=== PATIENT | female | born 1950 | race Caucasian/White ===

== ENCOUNTER → 2016-11-09 | Day surgery (SDC) | payer MEDICARE, MEDICAID ==
[~2016-11-09] VITALS: Ht 157.5 cm; Wt 93.4 kg
[~2016-11-09] MED LIST: /CARB4TA; /CARBXR20T OR; /LAMO20TA; /PROG10CA; ACET50TA PO; ACET65TA OR; ACET65TA PR; ALDA25TA PO; ALLE25CA OR; ANTI25TA; ASPI1TAB PO; ASPI81TA83 OR; BACT800T5 PO; BACTDSTA PO; BENA25CA PO; BIMA01SOL OU; CALCTAB52 PO; CIPRO OR; CITRACAL; CITRACAL PO; CLOTRIMAZOLE CREAM TOP; COLA100C2 OR; COLA100C3 PO; COMB0.2S OU; DETR2CAP OR; DETR4CAP; DOXY100T; ESTR625TA; ESTR625TA OR; IBUP800T; IBUP800T OR; KEPP1000 PO; LAMICTAL PO; LAMO150T PO; LIDOCAINE 2% INJ 100 MG/5 ML SDV (FOR ANES.) As Ordered ONE; LOTRCRE; LUMIGAN OU; MECL12.5 OR; MILKSUS OR; MULT1TAB10 PO; MULTIVIT; MULTIVIT PO; NS 1,000 ML IV ONE; OXYB10TA OR; OXYB5TAB PO; PATA0.2S OU; PERCOCET PO; PROPOFOL 200 MG/20 ML VIAL As Ordered ONE; TOPAMAX; TOPAMAX PO; TOPI200T; TOPI200T4 PO; TRAVOPROST; VICO5TAB OR; VIMPAT; VITA-130 PO; VITA500T OR; XALATAN OPHT OU; ZITH250T; lamictal PO
[2016-11-09 10:50] VITALS: BP 122/67
== END | disposition home or self-care (01) ==
LOC: M OPP 07:59 → M SDC 07:59
PROVIDERS: ATTEND Internal Medicine Gastroenterology
DX: Z12.11 Encounter for screening for malignant neoplasm of colon (principal); K64.0 First degree hemorrhoids; K57.30 Diverticulosis of large intestine without perforation or abscess without bleeding; Q04.3 Other reduction deformities of brain; G93.40 Encephalopathy, unspecified; G81.10 Spastic hemiplegia affecting unspecified side; H93.19 Tinnitus, unspecified ear; N32.81 Overactive bladder; G47.33 Obstructive sleep apnea (adult) (pediatric); G47.61 Periodic limb movement disorder; H40.9 Unspecified glaucoma; C54.2 Malignant neoplasm of myometrium; R92.8 Other abnormal and inconclusive findings on diagnostic imaging of breast; R29.898 Other symptoms and signs involving the musculoskeletal system; G40.909 Epilepsy, unspecified, not intractable, without status epilepticus; R06.83 Snoring; Z88.1 Allergy status to other antibiotic agents; Z88.8 Allergy status to other drugs, medicaments and biological substances; Z91.048 Other nonmedicinal substance allergy status; Z91.09 Other allergy status, other than to drugs and biological substances; Z79.899 Other long term (current) drug therapy; Z79.82 Long term (current) use of aspirin; Z86.79 Personal history of other diseases of the circulatory system; Z87.81 Personal history of (healed) traumatic fracture; Z90.710 Acquired absence of both cervix and uterus

== ENCOUNTER → 2016-11-11 | Outpatient (CLI) | payer MEDICARE, MEDICAID ==
[~2016-11-11] MED LIST changes: -LIDOCAINE 2% INJ 100 MG/5 ML SDV (FOR ANES.) As Ordered ONE; -NS 1,000 ML IV ONE; -PROPOFOL 200 MG/20 ML VIAL As Ordered ONE
[2016-11-11 14:06] LABS: BASO % 0.3 % (0.0-1.0); EOS # 0.2 K/mm3 (0.0-0.50); EOS % 2.3 % (0.0-3.0); LARGE UNSTAINED CELL # 0.1 K/mm3 (0.0-0.4); LARGE UNSTAINED CELL % 1.1 % (0.0-4.0); LYMPH # 1.4 K/mm3 (1.5-4.5); MEAN CORPUSCULAR HGB CONC 32.7 g/dl (32.0-36.5); MEAN CORPUSCULAR VOLUME 103.8 fl (80.0-96.0); MONO # 0.4 K/mm3 (0.0-0.8); MONO % 5.4 % (0.0-5.0); NEUTROPHILS # 5.3 K/mm3 (1.8-7.7); NEUTROPHILS % 71.8 % (36.0-66.0); PLATELET COUNT, AUTOMATED 218 k/mm3 (150-450); RED CELL DISTRIBUTION WIDTH 11.8 % (11.5-14.5); WHITE BLOOD COUNT 7.3 K/mm3 (4.0-10.0)
[2016-11-11 14:38] LABS: ALBUMIN 3.7 GM/DL (3.2-5.2); ALKALINE PHOSPHATASE 120 U/L (45-117); ALT/SGPT 22 U/L (12-78); ANION GAP 8 MEQ/L (8-16); AST/SGOT 19 U/L (15-37); BILIRUBIN,TOTAL 0.4 MG/DL (0.2-1.0); BLOOD UREA NITROGEN 13 MG/DL (7-18); CALCIUM LEVEL 9.2 MG/DL (8.8-10.2); CARBON DIOXIDE LEVEL 27 MEQ/L (21-32); CHLORIDE LEVEL 109 MEQ/L (98-107); CHOLESTEROL LEVEL 139 MG/DL (<200); CREATININE FOR GFR 0.84 MG/DL (0.55-1.02); GLOMERULAR FILTRATION RATE > 60.0 (>45); GLUCOSE, FASTING 85 MG/DL (80-110); SODIUM LEVEL 144 MEQ/L (136-145); TOTAL PROTEIN 7.4 GM/DL (6.4-8.2); TRIGLYCERIDES LEVEL 44 MG/DL (<150)
== END ==
LOC: M WUC 08:55
PROVIDERS: ATTEND Emergency Medicine
DX: I10 Essential (primary) hypertension (principal)

== ENCOUNTER → 2016-12-20 | Outpatient (CLI) | payer MEDICARE, MEDICAID ==
[~2016-12-20] MED LIST changes: -COLA100C3 PO; +COLA100C5 PO; -KEPP1000 PO; +KEPP10002 PO; +LIDOCAINE 1% MDV 20ML VIAL As Ordered ONE; -TOPI200T4 PO; +TOPI200T7 PO; -VITA-130 PO; +VITA500T PO
--- NOTE | 2016-12-20 15:45 | REP ---
RIGHT BREAST STEREOTACTIC BIOPSY: The procedure was performed by MANDI Devine under the direct and personal supervision of Dr Paul. The procedure along with its risks, benefits, and complications were discussed with the patient's healthcare proxy via phone call. Verbal consent was obtained. The patient was identified and brought into the mammography suite. She was placed in the mammography chair on her left hand side. A procedural "time out" was performed to ensure that the correct patient, site and procedure were being performed. A lateral medial approach was used. The skin was cleansed with Chloraprep. Cutaneous and deeper subcutaneous anesthesia were achieved using 10 mL of 1% Xylocaine. A small scalpel incision was made. The Mammotome biopsy device was inserted and its accuracy was confirmed with pre and post fire imaging. A total of six core biopsy specimens were obtained. The biopsy specimens revealed calcifications upon specimen radiography. The biopsy specimens were placed in formalin and sent to the lab for further evaluation. No biopsy clip was inserted at the biopsy site due to patient allergy. Post procedural craniocaudal and mediolateral projections disclosed no further calcifications at the target site. Following the procedure, the wound was cleansed and compressed. Steri-Strips and sterile gauze were applied and the patient was given their post biopsy instructions. She was discharged from the department in good condition. Reviewed by MANDI Sanders 12/20/2016 04:31 PEdited and Signed by Jose Paul MD 12/20/2016 09:09 P
--- NOTE | 2016-12-20 18:37 | REP ---
Right breast specimen radiograph: 12/20/2016. Comparison: Stereotactic localization images this date, mammogram 11/04/2016. Two images with a total of five core samples on one images two and the other show that on sample labeled number of O or all of the targeted microcalcifications except for one in that specimen with 1 ml ample five. Impression: sampling of the calcifications target for biopsy with the majority of the calcifications and one in the sample gauge for one calcification and sample gait five. Please see the posterior tactic mammogram report this date. Signed by Jose Paul MD 12/20/2016 06:29 P
--- NOTE | 2016-12-20 18:50 | REP ---
Right breast post stereotactic clip placement study: 12/20/2016. Comparison: Stereotactic working films this date, mammogram 11/17/2016. Findings: CC and ML views after stereotactic biopsy showed the targeted microcalcifications are completely removed on both images. There are scattered benign calcifications and arterial calcifications present, but no residual calcifications from the targeted cluster. Impression: 1. Status post stereotactic biopsy with complete removal of the calcific target in question. Followup should be guided by the stereotactic biopsy results but if negative, annual bilateral screening mammogram should resume in October 2017. Signed by Jose Paul MD 12/20/2016 09:28 P
== END | disposition home or self-care (01) ==
LOC: M RADPRO 12:02
PROVIDERS: ATTEND Surgery
DX: E65 Localized adiposity (principal); R92.8 Other abnormal and inconclusive findings on diagnostic imaging of breast; F79 Unspecified intellectual disabilities; G40.909 Epilepsy, unspecified, not intractable, without status epilepticus; H40.9 Unspecified glaucoma; Z86.73 Personal history of transient ischemic attack (TIA), and cerebral infarction without residual deficits; Z88.8 Allergy status to other drugs, medicaments and biological substances; L23.1 Allergic contact dermatitis due to adhesives; Z88.1 Allergy status to other antibiotic agents; Z79.899 Other long term (current) drug therapy; Z91.048 Other nonmedicinal substance allergy status

== ENCOUNTER → 2016-12-24 | Outpatient (REF) ==
[~2016-12-24] MED LIST changes: -LIDOCAINE 1% MDV 20ML VIAL As Ordered ONE
== END ==
LOC: M LAB 11:56
PROVIDERS: ATTEND Nurse Practitioner Adult Health
DX: Z02.1 Encounter for pre-employment examination (principal)

== ENCOUNTER → 2017-03-02 | Outpatient (CLI) | payer MEDICARE, MEDICAID ==
[2017-03-02 14:18] LABS: BASO % 0.4 % (0.0-1.0); EOS # 0.2 10^3/uL (0.0-0.50); IMMATURE GRANULOCYTE % 0.4 % (0-0); LYMPH % 25.1 % (24.0-44.0); MEAN CORPUSCULAR HEMOGLOBIN 32.7 pg (27.0-33.0); MEAN CORPUSCULAR HGB CONC 31.9 g/dl (32.0-36.5); MEAN CORPUSCULAR VOLUME 102.6 fl (80.0-96.0); MONO # 0.6 10^3/uL (0.0-0.8); MONO % 7.6 % (0.0-5.0); NEUTROPHILS % 63.5 % (36.0-66.0); PLATELET COUNT, AUTOMATED 210 10^3/uL (150-450); RED CELL DISTRIBUTION WIDTH 12.5 % (11.5-14.5); WHITE BLOOD COUNT 7.9 10^3/uL (4.0-10.0)
[2017-03-02 14:33] LABS: ALBUMIN 3.6 GM/DL (3.2-5.2); ALBUMIN/GLOBULIN RATIO 1.03 (1.00-1.93); ALKALINE PHOSPHATASE 108 U/L (45-117); ALT/SGPT 21 U/L (12-78); ANION GAP 7 MEQ/L (8-16); AST/SGOT 13 U/L (15-37); BILIRUBIN,TOTAL 0.3 MG/DL (0.2-1.0); BLOOD UREA NITROGEN 15 MG/DL (7-18); CALCIUM LEVEL 9.1 MG/DL (8.8-10.2); CARBON DIOXIDE LEVEL 27 MEQ/L (21-32); CHLORIDE LEVEL 108 MEQ/L (98-107); CREATININE FOR GFR 0.76 MG/DL (0.55-1.02); GLOMERULAR FILTRATION RATE > 60.0 (>45); GLUCOSE, FASTING 88 MG/DL (80-110); POTASSIUM SERUM 3.9 MEQ/L (3.5-5.1); SODIUM LEVEL 142 MEQ/L (136-145); TOTAL PROTEIN 7.1 GM/DL (6.4-8.2)
[2017-03-08 00:11] LABS: TOPIRAMATE LEVEL 19.9 ug/mL (2.0-25.0)
== END ==
LOC: M WUC 09:26
PROVIDERS: ATTEND Psychiatry & Neurology Neurology
DX: G40.211 Localization-related (focal) (partial) symptomatic epilepsy and epileptic syndromes with complex partial seizures, intractable, with status epilepticus (principal); I69.851 Hemiplegia and hemiparesis following other cerebrovascular disease affecting right dominant side; R26.1 Paralytic gait

== ENCOUNTER → 2017-07-22 | Outpatient (CLI) | payer MEDICARE, MEDICAID ==
[2017-07-22 12:10] LABS: BASO % 0.4 % (0.0-1.0); EOS # 0.1 10^3/uL (0.0-0.50); EOS % 1.7 % (0.0-3.0); HEMATOCRIT 37.9 % (36.0-47.0); HEMOGLOBIN 12.3 g/dl (12.0-16.0); IMMATURE GRANULOCYTE % 0.1 % (0-3.0); LYMPH % 26.2 % (24.0-44.0); MEAN CORPUSCULAR HEMOGLOBIN 32.8 pg (27.0-33.0); MEAN CORPUSCULAR HGB CONC 32.5 g/dl (32.0-36.5); MEAN CORPUSCULAR VOLUME 101.1 fl (80.0-96.0); MONO # 0.4 10^3/uL (0.0-0.8); MONO % 5.6 % (0.0-5.0); PLATELET COUNT, AUTOMATED 231 10^3/uL (150-450); RED BLOOD COUNT 3.75 10^6/uL (4.00-5.40); RED CELL DISTRIBUTION WIDTH 12.7 % (11.5-14.5); WHITE BLOOD COUNT 7.5 10^3/uL (4.0-10.0)
[2017-07-22 12:39] LABS: ALBUMIN 3.5 GM/DL (3.2-5.2); ALBUMIN/GLOBULIN RATIO 0.88 (1.00-1.93); ALKALINE PHOSPHATASE 112 U/L (45-117); ALT/SGPT 16 U/L (12-78); ANION GAP 5 MEQ/L (8-16); AST/SGOT 12 U/L (7-37); BILIRUBIN,TOTAL 0.3 MG/DL (0.2-1.0); BLOOD UREA NITROGEN 17 MG/DL (7-18); CALCIUM LEVEL 8.7 MG/DL (8.8-10.2); CARBON DIOXIDE LEVEL 30 MEQ/L (21-32); CHLORIDE LEVEL 107 MEQ/L (98-107); CREATININE FOR GFR 0.87 MG/DL (0.55-1.30); GLOMERULAR FILTRATION RATE > 60.0 (>45); GLUCOSE, FASTING 81 MG/DL (70-100); POTASSIUM SERUM 3.8 MEQ/L (3.5-5.1); SODIUM LEVEL 142 MEQ/L (136-145); TOTAL PROTEIN 7.5 GM/DL (6.4-8.2)
[2017-07-26 00:06] LABS: LEVETIRACETAM (KEPPRA) 25.6 ug/mL (10.0-40.0)
[2017-07-26 00:06] LABS: LAMOTRIGINE (LAMICTAL) 6.6 ug/mL (2.0-20.0); TOPIRAMATE LEVEL 22.5 ug/mL (2.0-25.0)
== END ==
LOC: M WUC 10:32
DX: R56.9 Unspecified convulsions (principal)
CPT/HCPCS: 80053

== ENCOUNTER 2017-08-03 07:31 | Emergency (ER) | payer MEDICARE, MEDICAID | END 2017-08-03 08:20 | disposition home or self-care (01) | LOC: M ED 07:31 | DX: S00.03XA Contusion of scalp, initial encounter (principal); W01.198A Fall on same level from slipping, tripping and stumbling with subsequent striking against other object, initial encounter; Y92.098 Other place in other non-institutional residence as the place of occurrence of the external cause; G40.209 Localization-related (focal) (partial) symptomatic epilepsy and epileptic syndromes with complex partial seizures, not intractable, without status epilepticus; F70 Mild intellectual disabilities; R51 Headache; Z79.899 Other long term (current) drug therapy; Z79.82 Long term (current) use of aspirin; Z88.8 Allergy status to other drugs, medicaments and biological substances; Z88.1 Allergy status to other antibiotic agents; Z91.048 Other nonmedicinal substance allergy status | CPT/HCPCS: 99282 ==

== ENCOUNTER → 2017-09-20 | Outpatient (CLI) | payer MEDICARE, MEDICAID ==
[2017-09-20 12:44] LABS: BASO % 0.4 % (0.0-1.0); EOS # 0.2 10^3/uL (0.0-0.50); EOS % 2.2 % (0.0-3.0); HEMATOCRIT 38.8 % (36.0-47.0); HEMOGLOBIN 12.6 g/dl (12.0-15.5); IMMATURE GRANULOCYTE % 0.3 % (0-3.0); LYMPH % 26.9 % (24.0-44.0); MEAN CORPUSCULAR HEMOGLOBIN 33.2 pg (27.0-33.0); MEAN CORPUSCULAR HGB CONC 32.5 g/dl (32.0-36.5); MEAN CORPUSCULAR VOLUME 102.1 fl (80.0-96.0); MONO # 0.5 10^3/uL (0.0-0.8); MONO % 6.8 % (0.0-5.0); NEUTROPHILS # 4.7 10^3/uL (1.8-7.7); NEUTROPHILS % 63.4 % (36.0-66.0); PLATELET COUNT, AUTOMATED 212 10^3/uL (150-450); RED CELL DISTRIBUTION WIDTH 11.9 % (11.5-14.5); WHITE BLOOD COUNT 7.3 10^3/uL (4.0-10.0)
[2017-09-20 12:55] LABS: ALBUMIN 3.3 GM/DL (3.2-5.2); ALBUMIN/GLOBULIN RATIO 0.87 (1.00-1.93); ALKALINE PHOSPHATASE 117 U/L (45-117); ALT/SGPT 17 U/L (12-78); ANION GAP 5 MEQ/L (8-16); AST/SGOT 14 U/L (7-37); BILIRUBIN,TOTAL 0.3 MG/DL (0.2-1.0); BLOOD UREA NITROGEN 19 MG/DL (7-18); CALCIUM LEVEL 8.8 MG/DL (8.8-10.2); CARBON DIOXIDE LEVEL 29 MEQ/L (21-32); CHLORIDE LEVEL 110 MEQ/L (98-107); CHOLESTEROL LEVEL 134 MG/DL (<200); CHOLESTEROL RISK RATIO 1.942 (<5); CREATININE FOR GFR 0.91 MG/DL (0.55-1.30); GLOMERULAR FILTRATION RATE > 60.0 (>45); GLUCOSE, FASTING 78 MG/DL (70-100); HDL CHOLESTEROL 69 MG/DL (>40); LDL CHOLESTEROL 55.4 MG/DL (<100); NON-HDL-C 65 MG/DL; POTASSIUM SERUM 3.7 MEQ/L (3.5-5.1); SODIUM LEVEL 144 MEQ/L (136-145); TOTAL PROTEIN 7.1 GM/DL (6.4-8.2); TRIGLYCERIDES LEVEL 48 MG/DL (<150)
== END ==
LOC: M WUC 09:49
DX: I10 Essential (primary) hypertension (principal)
CPT/HCPCS: 80053

== ENCOUNTER → 2018-08-23 | Outpatient (CLI) | payer MEDICARE, MEDICAID ==
[~2018-08-23] MED LIST changes: -/CARB4TA; -/CARBXR20T OR; -/LAMO20TA; -/PROG10CA; -ACET50TA PO; -ALDA25TA PO; -ASPI1TAB PO; +ASPI81TA26 PO; -BACTDSTA PO; +IBUP-1114 PO; +LAMI1TAB9; -LAMO150T PO; +LAMO150T2 PO; +MAPA500T17 PO; +OXYC1TAB23 PO; -PERCOCET PO; +PROM1CAP; +SPIR1TAB34 PO; +SULF1TAB23 PO; +TEGR1TAB OR; +TEGR1TAB2
[2018-08-23 08:04] LABS: BASO % 0.3 % (0.0-1.0); EOS # 0.2 10^3/uL (0.0-0.50); EOS % 2.5 % (0.0-3.0); HEMATOCRIT 39.4 % (36.0-47.0); HEMOGLOBIN 12.7 g/dl (12.0-15.5); LYMPH # 1.8 10^3/uL (1.5-4.5); LYMPH % 27.2 % (24.0-44.0); MEAN CORPUSCULAR HEMOGLOBIN 33.3 pg (27.0-33.0); MEAN CORPUSCULAR HGB CONC 32.2 g/dl (32.0-36.5); MEAN CORPUSCULAR VOLUME 103.4 fl (80.0-96.0); MONO # 0.4 10^3/uL (0.0-0.8); MONO % 6.5 % (0.0-5.0); NEUTROPHILS # 4.3 10^3/uL (1.8-7.7); NEUTROPHILS % 63.2 % (36.0-66.0); PLATELET COUNT, AUTOMATED 229 10^3/uL (150-450); RED BLOOD COUNT 3.81 10^6/uL (4.00-5.40); WHITE BLOOD COUNT 6.8 10^3/uL (4.0-10.0)
[2018-08-23 08:16] LABS: ALBUMIN 3.5 GM/DL (3.2-5.2); ALT/SGPT 17 U/L (12-78); BILIRUBIN,TOTAL 0.3 MG/DL (0.2-1.0); BLOOD UREA NITROGEN 21 MG/DL (7-18); CALCIUM LEVEL 9.6 MG/DL (8.8-10.2); CARBON DIOXIDE LEVEL 29 MEQ/L (21-32); CHLORIDE LEVEL 108 MEQ/L (98-107); CREATININE FOR GFR 1.13 MG/DL (0.55-1.30); GLOMERULAR FILTRATION RATE 51.3 (>45); GLUCOSE, FASTING 88 MG/DL (70-100); POTASSIUM SERUM 3.6 MEQ/L (3.5-5.1); SODIUM LEVEL 142 MEQ/L (136-145); TOTAL PROTEIN 7.4 GM/DL (6.4-8.2)
[2018-08-23 09:56] LABS: TOTAL 25(OH) VITAMIN D 41.2 NG/ML (30.0-100.0); VITAMIN B12 LEVEL 975 PG/ML
[2018-08-23 09:57] LABS: FOLATE > 24.0 NG/ML
[2018-08-25 08:15] LABS: TOPIRAMATE LEVEL 27.4 ug/mL (2.0-25.0)
[2018-08-26 00:08] LABS: LAMOTRIGINE (LAMICTAL) 10.2 ug/mL (2.0-20.0); LEVETIRACETAM (KEPPRA) 39.5 ug/mL (10.0-40.0)
== END ==
LOC: M LAB 07:15
PROVIDERS: ATTEND Physician Assistant Medical
DX: R56.9 Unspecified convulsions (principal); Z51.81 Encounter for therapeutic drug level monitoring; R53.83 Other fatigue; Z79.82 Long term (current) use of aspirin

== ENCOUNTER → 2018-09-04 | Outpatient (CLI) | payer MEDICARE, MEDICAID ==
[2018-09-06 00:58] LABS: TOPIRAMATE LEVEL 35.8 ug/mL (2.0-25.0)
== END ==
LOC: M LAB 07:35
PROVIDERS: ATTEND Physician Assistant Medical
DX: R56.9 Unspecified convulsions (principal)

== ENCOUNTER → 2018-09-18 | Outpatient (CLI) | payer MEDICARE, MEDICAID ==
[2018-09-20 08:36] LABS: TOPIRAMATE LEVEL 22.5 ug/mL (2.0-25.0)
== END ==
LOC: M LAB 07:31
PROVIDERS: ATTEND Physician Assistant Medical
DX: G40.89 Other seizures (principal)

== ENCOUNTER 2018-10-12 08:04 | Emergency (ER) | payer MEDICARE, MEDICAID ==
[2018-10-12 08:38] LABS: BASO % 0.2 % (0.0-1.0); EOS # 0.2 10^3/uL (0.0-0.50); EOS % 2.5 % (0.0-3.0); HEMATOCRIT 38.1 % (36.0-47.0); HEMOGLOBIN 12.3 g/dl (12.0-15.5); LYMPH % 24.3 % (24.0-44.0); MEAN CORPUSCULAR HGB CONC 32.3 g/dl (32.0-36.5); MEAN CORPUSCULAR VOLUME 105.2 fl (80.0-96.0); MONO # 0.7 10^3/uL (0.0-0.8); MONO % 8.6 % (0.0-5.0); NEUTROPHILS # 5.4 10^3/uL (1.8-7.7); PLATELET COUNT, AUTOMATED 234 10^3/uL (150-450); RED BLOOD COUNT 3.62 10^6/uL (4.00-5.40); WHITE BLOOD COUNT 8.4 10^3/uL (4.0-10.0)
[2018-10-12] MEDS ORDERED: TOPA200T7 PO (08:43)
[2018-10-12 09:16] LABS: ALBUMIN 3.5 GM/DL (3.2-5.2); ALT/SGPT 15 U/L (12-78); BILIRUBIN,DIRECT < 0.1 MG/DL (0.0-0.2); BILIRUBIN,TOTAL 0.2 MG/DL (0.2-1.0); BLOOD UREA NITROGEN 28 MG/DL (7-18); CALCIUM LEVEL 9.5 MG/DL (8.8-10.2); CARBON DIOXIDE LEVEL 28 MEQ/L (21-32); CHLORIDE LEVEL 108 MEQ/L (98-107); CK-MB VALUE MASS < 1.0 NG/ML (<3.6); CPK CREATINE PHOSPHOKINASE 71 U/L (26-192); GLOMERULAR FILTRATION RATE 43.6 (>45); GLUCOSE, FASTING 79 MG/DL (70-100); MB/CK RELATIVE INDEX 1.41 (< OR =4); POTASSIUM SERUM 3.4 MEQ/L (3.5-5.1); SODIUM LEVEL 143 MEQ/L (136-145); TOTAL PROTEIN 7.1 GM/DL (6.4-8.2); TROPONIN I < 0.02 NG/ML (< 0.10)
[2018-10-12] MEDS ORDERED: NS 1,000 ML IV ONE (09:30)
[2018-10-12 12:20] VITALS: BP 111/68
--- NOTE | 2018-10-12 20:44 | ECGEPIP ---
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
== END 2018-10-12 12:40 | disposition home or self-care (01) ==
LOC: M ED 08:04
DX: R42 Dizziness and giddiness (principal); S50.311A Abrasion of right elbow, initial encounter; S60.511A Abrasion of right hand, initial encounter; W01.190A Fall on same level from slipping, tripping and stumbling with subsequent striking against furniture, initial encounter; Y92.092 Bedroom in other non-institutional residence as the place of occurrence of the external cause; I10 Essential (primary) hypertension; E07.9 Disorder of thyroid, unspecified; R56.9 Unspecified convulsions; Z86.73 Personal history of transient ischemic attack (TIA), and cerebral infarction without residual deficits; R32 Unspecified urinary incontinence; Z88.1 Allergy status to other antibiotic agents; Z88.8 Allergy status to other drugs, medicaments and biological substances; Z91.048 Other nonmedicinal substance allergy status; Z79.899 Other long term (current) drug therapy; Z79.82 Long term (current) use of aspirin

== ENCOUNTER 2019-02-16 09:35 | Outpatient (RCR) | payer MEDICARE, MEDICAID ==
[~2019-02-16 09:35] MED LIST changes: -OXYB5TAB PO; +OXYB5TAB2 PO; +TOPA200T7 PO
== END 2019-02-19 | disposition home or self-care (01) ==
LOC: M PT 09:35
PROVIDERS: ATTEND Family Medicine
DX: Z51.89 Encounter for other specified aftercare (principal); M79.605 Pain in left leg; R29.6 Repeated falls

== ENCOUNTER → 2019-02-21 | Outpatient (CLI) | payer MEDICARE, MEDICAID ==
--- NOTE | 2019-02-21 16:53 | REP ---
REASON FOR EXAM: Pain. COMPARISON EXAMINATION: None. There is tricompartmental marginal osteophytosis. There is asymmetric patellofemoral joint space narrowing, however, no sunrise view is obtained. There is no acute fracture. IMPRESSION:Chronic changes. Electronically Signed by German Snyder DO 02/21/2019 05:05 P
== END ==
LOC: M WUC 14:29
PROVIDERS: ATTEND Nurse Practitioner Family
DX: M25.762 Osteophyte, left knee (principal)

== ENCOUNTER → 2019-02-23 | Outpatient (CLI) | payer MEDICARE, MEDICAID ==
--- NOTE | 2019-02-23 15:31 | REPMRS ---
Patient History The patient states she has not had a clinical breast exam in over a year. No known family history of cancer. Benign radio exam breast specimen of the right breast, December 20, 2016. Benign stereotatic loc for ea lesion of the right breast, December 20, 2016. Radio exam Breast Specimen, August 04, 2011. Localization of Breast Nodule of both breasts, August 04, 2011. Benign stereotatic breast biopsy of both breasts, July 14, 2011. No Hormone Replacement Therapy 3D TOMOSYNTHESIS WAS PERFORMED. The [facility] lifetime risk for breast cancer is 7.4%. Digital Woman Screen Mammo: February 23, 2019 - Exam #: [id number] Bilateral CC and MLO view(s) were taken. Technologist: Harika Britton Technologist Prior study comparison: January 17, 2018, bilateral digital woman screen mammo performed at [facility]. March 15, 2016, right breast digital mammo diagnostic unilateral, performed at [facility]. FINDINGS: There are scattered fibroglandular densities. There has been no change in the appearance of the mammogram from the prior studies. There is a mild amount of residual fibroglandular tissue which is fairly symmetric. There is no interval development of dominant mass, architectural distortion, or clustered microcalcification suggestive of malignancy. Assessment: BI-RADS/ACR category 1 mammogram. Negative Mammogram. Recommendation Routine screening mammogram in 1 year (for women over age 40). This mammogram was interpreted with the aid of an FDA-approved computer-aided dectection system. Electronically Signed By: Filemon Vyas MD 02/23/19 1550
== END ==
LOC: M WHC 10:29
PROVIDERS: ATTEND Family Medicine
DX: Z12.31 Encounter for screening mammogram for malignant neoplasm of breast (principal)

== ENCOUNTER 2019-03-14 07:30 | Outpatient (RCR) | payer MEDICARE, MEDICAID | END 2019-03-22 | LOC: M PT 07:30 | PROVIDERS: ATTEND Family Medicine | DX: M79.605 Pain in left leg (principal); R29.6 Repeated falls ==

== ENCOUNTER → 2019-04-13 | Outpatient (CLI) | payer MEDICARE, MEDICAID ==
--- NOTE | 2019-04-13 15:52 | REP ---
LEFT KNEE SERIES: Five views of the left knee are performed. There is no acute fracture or dislocation. There is mild lateral joint space narrowing with mild subchondral sclerosis. There is mild spurring of the femoral condyles and tibial plateaus. There is mild spurring of the medial and lateral patellar facets. There is slight narrowing of the patellofemoral joint with mild subchondral sclerosis. There does appear to be a mild to moderate joint effusion. IMPRESSION: Mild degenerative changes. Mild to moderate joint effusion. Electronically Signed by Filemon Vyas MD 04/16/2019 10:10 A
== END ==
LOC: M ADAMS 13:11
PROVIDERS: ATTEND Physician Assistant Medical
DX: S80.02XA Contusion of left knee, initial encounter (principal); M17.12 Unilateral primary osteoarthritis, left knee; M25.462 Effusion, left knee

== ENCOUNTER → 2019-08-22 | Outpatient (REF) | payer MEDICARE, MEDICAID ==
[~2019-08-22] MED LIST changes: -LAMO150T2 PO; +LAMO150T3 PO; +OXYB-54 PO; -OXYB5TAB2 PO
== END ==
LOC: M LABDRAW1 09:01
PROVIDERS: ATTEND Physician Assistant Medical
DX: R56.9 Unspecified convulsions (principal)

== ENCOUNTER → 2020-02-21 | Outpatient (CLI) | payer MEDICARE, MEDICAID ==
[~2020-02-21] MED LIST changes: +OLOP2.5D3 OU; -PATA0.2S OU; +VITA-243 PO; -VITA500T PO
[2020-02-21 13:07] LABS: BASO % 0.2 % (0.0-1.0); EOS # 0.2 10^3/uL (0.0-0.5); EOS % 2.4 % (0.0-3.0); HEMATOCRIT 38.9 % (36.0-47.0); HEMOGLOBIN 12.6 g/dl (12.0-15.5); LYMPH # 1.8 10^3/uL (1.5-5.0); LYMPH % 22.8 % (24.0-44.0); MEAN CORPUSCULAR HEMOGLOBIN 33.5 pg (27.0-33.0); MEAN CORPUSCULAR HGB CONC 32.4 g/dl (32.0-36.5); MEAN CORPUSCULAR VOLUME 103.5 fl (80.0-96.0); MONO # 0.6 10^3/uL (0.0-0.8); NEUTROPHILS # 5.3 10^3/uL (1.5-8.5); NEUTROPHILS % 66.4 % (36.0-66.0); PLATELET COUNT, AUTOMATED 227 10^3/uL (150-450); RED BLOOD COUNT 3.76 10^6/uL (4.00-5.40)
[2020-02-21 13:48] LABS: ALBUMIN 3.6 GM/DL (3.2-5.2); BILIRUBIN,TOTAL 0.3 MG/DL (0.2-1.0); CALCIUM LEVEL 9.4 MG/DL (8.8-10.2); CHOLESTEROL RISK RATIO 1.913 (<5); CREATININE FOR GFR 1.08 MG/DL (0.55-1.30); FREE T4 1.24 NG/DL (0.76-1.46); GLOMERULAR FILTRATION RATE 53.9 (>45); POTASSIUM SERUM 3.8 MEQ/L (3.5-5.1); THYROID STIMULATING HORMONE 1.69 uIU/ML (0.358-3.740); TOTAL PROTEIN 7.1 GM/DL (6.4-8.2)
== END ==
LOC: M WUC 08:54
PROVIDERS: ATTEND Nurse Practitioner Family
DX: I10 Essential (primary) hypertension (principal)

== ENCOUNTER → 2020-10-15 | Outpatient (CLI) | payer MEDICARE, MEDICAID ==
--- NOTE | 2020-10-15 12:31 | REPMRS ---
Patient History The patient states she has not had a clinical breast exam in over a year. No known family history of cancer. Benign radio exam breast specimen of the right breast, December 20, 2016. Benign stereotatic loc for ea lesion of the right breast, December 20, 2016. Radio exam Breast Specimen, August 04, 2011. Localization of Breast Nodule of both breasts, August 04, 2011. Benign stereotatic breast biopsy of both breasts, July 14, 2011. No Hormone Replacement Therapy No breast complaints today Patient signed the MRS sheet 1st covid vaccine 07/01/20-right arm-Moderna 2nd covid vaccine 07/29/20-right arm 2D only/Best views possible due to patient condition/[facility] client Priors on PACS Patient Identification Verified Digital Woman Screen Mammo: October 15, 2020 - Exam #: [id number] Bilateral CC and MLO view(s) were taken. Technologist: Florence Sheikh, Technologist Prior study comparison: February 23, 2019, bilateral digital woman screen mammo performed at [facility] [place]. January 17, 2018, bilateral digital woman screen mammo performed at [facility] [place]. November 04, 2016, bilateral digital mammo screening bilat, performed at [facility]. FINDINGS: There are scattered fibroglandular densities. The Volpara volumetric breast density category is:B. There has been no change in the appearance of the mammogram from the prior studies. There is a mild amount of scattered fibroglandular density which is fairly symmetric. There is no interval development of dominant mass, architectural distortion, or grouped microcalcification suggestive of malignancy. Assessment: BI-RADS/ACR category 1 mammogram. Negative Mammogram. Recommendation Routine screening mammogram of both breasts in 1 year (for women over age 40). This patient's [facility] Lifetime Breast Cancer Risk is estimated at 6.6 %. This mammogram was interpreted with the aid of an FDA-approved computer-aided dectection system. Electronically Signed By: Ramírez Martinez MD 10/15/20 3283
== END ==
LOC: M WHC 10:55
PROVIDERS: ATTEND Family Medicine
DX: Z12.31 Encounter for screening mammogram for malignant neoplasm of breast (principal); Z86.018 Personal history of other benign neoplasm

== ENCOUNTER → 2021-02-12 | Outpatient (CLI) | payer MEDICARE, MEDICAID ==
[2021-02-12 16:45] LABS: BASO % 0.4 % (0.0-1.0); EOS # 0.7 10^3/uL (0.0-0.5); EOS % 8.4 % (0.0-3.0); HEMATOCRIT 38.4 % (36.0-47.0); HEMOGLOBIN 12.6 g/dl (12.0-15.5); LYMPH # 2.4 10^3/uL (1.5-5.0); LYMPH % 30.6 % (24.0-44.0); MEAN CORPUSCULAR HEMOGLOBIN 33.4 pg (27.0-33.0); MEAN CORPUSCULAR HGB CONC 32.8 g/dl (32.0-36.5); MEAN CORPUSCULAR VOLUME 101.9 fl (80.0-96.0); MONO # 0.6 10^3/uL (0.0-0.8); MONO % 8.1 % (2.0-8.0); NEUTROPHILS # 4.1 10^3/uL (1.5-8.5); NEUTROPHILS % 52.1 % (36.0-66.0); PLATELET COUNT, AUTOMATED 230 10^3/uL (150-450); RED BLOOD COUNT 3.77 10^6/uL (4.00-5.40); WHITE BLOOD COUNT 7.9 10^3/uL (4.0-10.0)
[2021-02-12 17:10] LABS: ALBUMIN 3.4 GM/DL (3.2-5.2); BILIRUBIN,TOTAL 0.2 MG/DL (0.2-1.0); CALCIUM LEVEL 9.7 MG/DL (8.8-10.2); CREATININE FOR GFR 1.13 MG/DL (0.55-1.30); POTASSIUM SERUM 3.9 MEQ/L (3.5-5.1)
== END ==
LOC: M WUC 11:10
PROVIDERS: ATTEND Physician Assistant Medical
DX: R56.9 Unspecified convulsions (principal); Z51.81 Encounter for therapeutic drug level monitoring

== ENCOUNTER → 2021-03-27 | Outpatient (CLI) | payer MEDICARE, MEDICAID | LOC: M WUC 12:06 | PROVIDERS: ATTEND Physician Assistant Medical | DX: R56.9 Unspecified convulsions (principal) ==

== ENCOUNTER → 2021-03-27 | Outpatient (CLI) | payer MEDICARE, MEDICAID ==
[2021-03-27 16:30] LABS: ALBUMIN 3.2 GM/DL (3.2-5.2); BILIRUBIN,TOTAL 0.3 MG/DL (0.2-1.0); CALCIUM LEVEL 9.3 MG/DL (8.8-10.2); CHOLESTEROL RISK RATIO 1.983 (<5); CREATININE FOR GFR 1.2 MG/DL (0.55-1.30); GLOMERULAR FILTRATION RATE 47.6 (>45); POTASSIUM SERUM 3.7 MEQ/L (3.5-5.1); TOTAL PROTEIN 6.7 GM/DL (6.4-8.2)
== END ==
LOC: M WUC 12:03
PROVIDERS: ATTEND Nurse Practitioner Family
DX: I10 Essential (primary) hypertension (principal)

== ENCOUNTER → 2021-04-14 | Outpatient (CLI) | payer MEDICARE, MEDICAID | LOC: M WUC 08:12 | PROVIDERS: ATTEND Physician Assistant Medical | DX: R56.9 Unspecified convulsions (principal); Z51.81 Encounter for therapeutic drug level monitoring; Z79.899 Other long term (current) drug therapy ==

== ENCOUNTER 2021-06-29 10:38 | Emergency (ER) | payer MEDICARE, MEDICAID ==
[~2021-06-29] VITALS: Ht 157.5 cm; Wt 84.1 kg
[2021-06-29 10:49] VITALS: BP 109/58
[2021-06-29] MEDS ORDERED: BOOSTRIX/ADACEL VACCINE (DIPHTH/PERTUSS/ACELL/TETANUS) 0.5ML SYR IM ONE (12:15)
== END 2021-06-29 15:10 | disposition home or self-care (01) ==
LOC: M ED 10:38
DX: S81.801A Unspecified open wound, right lower leg, initial encounter (principal); V58.4XXA Person boarding or alighting a pick-up truck or van injured in noncollision transport accident, initial encounter; Y92.89 Other specified places as the place of occurrence of the external cause; F79 Unspecified intellectual disabilities; H40.9 Unspecified glaucoma; Z87.19 Personal history of other diseases of the digestive system; Z79.899 Other long term (current) drug therapy; Z79.82 Long term (current) use of aspirin; Z88.1 Allergy status to other antibiotic agents; Z88.8 Allergy status to other drugs, medicaments and biological substances; Z91.048 Other nonmedicinal substance allergy status

== ENCOUNTER → 2021-08-14 | Outpatient (CLI) | payer MEDICARE, MEDICAID | LOC: M WHC 09:31 | PROVIDERS: ATTEND Nurse Practitioner Family | DX: M85.88 Other specified disorders of bone density and structure, other site (principal); M89.9 Disorder of bone, unspecified ==

== ENCOUNTER → 2021-10-13 | Outpatient (CLI) | payer MEDICARE, MEDICAID | LOC: M WHC 08:30 | PROVIDERS: ATTEND Nurse Practitioner Family | DX: Z12.31 Encounter for screening mammogram for malignant neoplasm of breast (principal); R92.8 Other abnormal and inconclusive findings on diagnostic imaging of breast ==

== ENCOUNTER → 2021-11-12 | Outpatient (CLI) | payer MEDICARE, MEDICAID | LOC: M WHC 12:48 | PROVIDERS: ATTEND Nurse Practitioner Family | DX: N60.02 Solitary cyst of left breast (principal); R92.2 Inconclusive mammogram | CPT/HCPCS: 76642; 77065; G0279 ==

== ENCOUNTER → 2022-02-04 | Outpatient (CLI) | payer MEDICARE, MEDICAID ==
[2022-02-04 13:21] LABS: ALBUMIN 3.4 GM/DL (3.2-5.2); BILIRUBIN,TOTAL 0.4 MG/DL (0.2-1.0); CALCIUM LEVEL 10.1 MG/DL (8.8-10.2); CHOLESTEROL RISK RATIO 2.029 (<5); CREATININE FOR GFR 1.16 MG/DL (0.55-1.30); GLOMERULAR FILTRATION RATE 49.3 (>45); POTASSIUM SERUM 3.7 MEQ/L (3.5-5.1); TOTAL PROTEIN 6.9 GM/DL (6.4-8.2)
== END ==
LOC: M WUC 09:43
PROVIDERS: ATTEND Nurse Practitioner Family
DX: I10 Essential (primary) hypertension (principal)

== ENCOUNTER 2022-08-18 15:35 | Emergency (ER) | payer MEDICARE, MEDICAID ==
[~2022-08-18] VITALS: Ht 162.6 cm; Wt 90.9 kg
[2022-08-18 17:41] LABS: CALCIUM LEVEL 9.6 MG/DL (8.3-10.6); CREATININE FOR GFR 1.09 MG/DL (0.55-1.30); GLOMERULAR FILTRATION RATE 52.8 (>39); POTASSIUM SERUM 3.9 MMOL/L (3.5-5.1)
[2022-08-18 18:30] VITALS: BP 154/68
[2022-08-18] MEDS ORDERED: IBUPROFEN 600MG TAB PO ONE (18:30)
[2022-08-18] MEDS ORDERED: KEPP10002 PO ×2 (18:44→18:53)
[2022-08-18] MEDS ORDERED: KEPP1TAB PO (18:44)
[2022-08-23 19:07] LABS: LEVETIRACETAM (KEPPRA) 35.5 ug/mL (10.0-40.0); TOPIRAMATE LEVEL 20.7 ug/mL (2.0-25.0)
== END 2022-08-18 19:19 | disposition home or self-care (01) ==
LOC: M ED 15:35 → EDBD 15:35 → M ED 19:19
DX: G40.909 Epilepsy, unspecified, not intractable, without status epilepticus (principal); Z86.73 Personal history of transient ischemic attack (TIA), and cerebral infarction without residual deficits; Z88.8 Allergy status to other drugs, medicaments and biological substances; Z79.899 Other long term (current) drug therapy; Z79.82 Long term (current) use of aspirin

== ENCOUNTER 2022-09-12 17:36 | Inpatient (IN) | payer MEDICARE, MEDICAID ==
[~2022-09-12] VITALS: Ht 162.6 cm; Wt 88.0 kg
[~2022-09-12 17:36] MED LIST changes: +KEPP1TAB PO
[2022-09-12 18:45] LABS: ETHYL ALCOHOL (ETHANOL) < 0.003 % (0.000-0.010); LIPASE 21 U/L (12-53)
[2022-09-12 18:46] LABS: VALPROIC ACID (DEPAKOTE) 98.8 UG/ML (50.0-100.0)
[2022-09-12 18:47] LABS: ALBUMIN 3.4 G/DL (3.2-5.2); ALKALINE PHOSPHATASE 109 U/L (46-116); ALT/SGPT 14 U/L (7.0-40); AST/SGOT 22 U/L (<34); BILIRUBIN,DIRECT 0.1 MG/DL (<0.4); BILIRUBIN,TOTAL 0.3 MG/DL (0.3-1.2); BLOOD UREA NITROGEN 20 MG/DL (9-23); CALCIUM LEVEL 9.6 MG/DL (8.3-10.6); CARBON DIOXIDE LEVEL 26 MMOL/L (20-31); CHLORIDE LEVEL 105 MMOL/L (98-107); CREATININE FOR GFR 1.12 MG/DL (0.55-1.30); GLOMERULAR FILTRATION RATE 51.2 (>39); GLUCOSE, FASTING 85 MG/DL (74-106); POTASSIUM SERUM 3.7 MMOL/L (3.5-5.1); SODIUM LEVEL 140 MMOL/L (136-145); TOTAL PROTEIN 7.1 G/DL (5.7-8.2)
[2022-09-12 19:36] LABS: BASO % 0.3 % (0.0-1.0); EOS # 0.3 10^3/uL (0.0-0.5); EOS % 4.1 % (0.0-3.0); HEMATOCRIT 35.9 % (36.0-47.0); HEMOGLOBIN 11.6 g/dl (12.0-15.5); LYMPH # 2.1 10^3/uL (1.5-5.0); LYMPH % 30.3 % (24.0-44.0); MEAN CORPUSCULAR HEMOGLOBIN 33.1 pg (27.0-33.0); MEAN CORPUSCULAR HGB CONC 32.3 g/dl (32.0-36.5); MEAN CORPUSCULAR VOLUME 102.6 fl (80.0-96.0); MONO # 0.5 10^3/uL (0.0-0.8); MONO % 7.7 % (2.0-8.0); NEUTROPHILS # 3.9 10^3/uL (1.5-8.5); NEUTROPHILS % 57.5 % (36.0-66.0); PLATELET COUNT, AUTOMATED 215 10^3/uL (150-450); WHITE BLOOD COUNT 6.8 10^3/uL (4.0-10.0)
[2022-09-12] MEDS ORDERED: THERTAB52 PO (19:38)
[2022-09-12] MEDS ORDERED: DIVA500T94 PO (19:38)
[2022-09-12] MEDS ORDERED: BIMA01SOL OU (19:38)
[2022-09-12] MEDS ORDERED: TOPI200T7 PO (19:38)
[2022-09-12] MEDS ORDERED: LAMO200T3 PO (19:38)
[2022-09-12] MEDS ORDERED: [UNRECOGNIZED DRUG - OTHER] PO (19:38)
[2022-09-12] MEDS ORDERED: LEVE500T5 PO (19:38)
[2022-09-12] MEDS ORDERED: HOME MED LIST COMPLETE! XX SCH (19:40)
[2022-09-12 20:13] LABS: RSV AMPLIFICATION NEGATIVE (NEGATIVE)
[2022-09-12 21:08] LABS: AMPHETAMINES LEVEL URINE NEGATIVE (NEGATIVE); BARBITURATES URINE NEGATIVE (NEGATIVE); BENZODIAZEPINES URINE NEGATIVE (NEGATIVE); CANNABINOIDS URINE NEGATIVE (NEGATIVE); COCAINE METABOLITE URINE NEGATIVE (NEGATIVE); METHADONE URINE NEGATIVE (NEGATIVE); OPIATES URINE NEGATIVE (NEGATIVE); PHENCYCLIDINE URINE NEGATIVE (NEGATIVE)
[2022-09-12] MEDS ORDERED: CIPROFLOXACIN 400 MG in IV 1 EA IV ONE (21:20)
[2022-09-12] MEDS ORDERED: GLUCAGON INJ 1MG VIAL SC PRN (23:35)
[2022-09-12] MEDS ORDERED: DEXTROSE 50% 50ML SYRINGE IV PRN (23:35)
[2022-09-12] MEDS ORDERED: GLUCOSE 4GM CHEW TABLET PO PRN (23:35)
[2022-09-12] MEDS ORDERED: ACETAMINOPHEN TAB 650MG DOSE (2X325MG) PO PRN (23:35)
[2022-09-13 01:28] VITALS: BP 117/68
[2022-09-13] MEDS: levETIRAcetam 250MG TABLET (KEPPRA) PO SCH ×2 (04:39→09:14)
[2022-09-13] MEDS: lamoTRIgine 100MG TAB PO SCH ×3 (04:39→20:32)
[2022-09-13] MEDS: TOPIRAMATE (TopAMAX) 100 MG TAB PO SCH ×3 (04:39→20:32)
[2022-09-13] MEDS: ASPIRIN 81MG ENTERIC TABLET PO SCH ×2 (04:39→20:32)
[2022-09-13 04:45] VITALS: BP 119/66
[2022-09-13 06:46] LABS: HEMATOCRIT 35.6 % (36.0-47.0); HEMOGLOBIN 11.3 g/dl (12.0-15.5); MEAN CORPUSCULAR HEMOGLOBIN 32.7 pg (27.0-33.0); MEAN CORPUSCULAR HGB CONC 31.7 g/dl (32.0-36.5); MEAN CORPUSCULAR VOLUME 102.9 fl (80.0-96.0); PLATELET COUNT, AUTOMATED 191 10^3/uL (150-450); RED BLOOD COUNT 3.46 10^6/uL (4.00-5.40); WHITE BLOOD COUNT 6.6 10^3/uL (4.0-10.0)
[2022-09-13 06:57] LABS: HEMOGLOBIN A1c 5.1 % (4.0-6.0)
[2022-09-13 07:17] LABS: ALBUMIN 2.8 G/DL (3.2-5.2); BILIRUBIN,TOTAL 0.3 MG/DL (0.3-1.2); CREATININE FOR GFR 1.14 MG/DL (0.55-1.30); GLOMERULAR FILTRATION RATE 50.2 (>39); POTASSIUM SERUM 3.8 MMOL/L (3.5-5.1)
[2022-09-13] MEDS ORDERED: LevoFLOXacin IV 750 MG in IV 1 EA IV SCH ×4 (08:00)
[2022-09-13] MEDS ORDERED: DIVALPROEX 500 MG TAB PO SCH (09:00)
[2022-09-13] MEDS: MULTIVITAMINS/MINERALS THERAP 1 TAB PO SCH (09:14)
[2022-09-13] MEDS: ASCORBIC ACID 500 MG TAB PO SCH ×2 (09:14→20:32)
[2022-09-13] MEDS: DOCUSATE SODIUM 100MG CAPSULE PO SCH ×2 (09:14→20:32)
[2022-09-13] MEDS: ENOXAPARIN 40MG/0.4ML SYRINGE (J1650 PER 10MG) SC SCH (09:15)
[2022-09-13 14:00] VITALS: BP 106/63
[2022-09-13 20:19] VITALS: BP 118/65
[2022-09-13] MEDS ORDERED: LATANOPROST 0.005% OPHTH SOLN 2.5 ML OU SCH (21:00)
[2022-09-13] MEDS ORDERED: levETIRAcetam 250MG TABLET (KEPPRA) PO SCH (21:00)
[2022-09-14 05:35] VITALS: BP 115/65
[2022-09-14] MEDS ORDERED: CIPROFLOXACIN 250MG TAB PO SCH (06:00)
[2022-09-14 06:30] LABS: HEMATOCRIT 35.1 % (36.0-47.0); HEMOGLOBIN 11.4 g/dl (12.0-15.5); MEAN CORPUSCULAR HEMOGLOBIN 33.6 pg (27.0-33.0); MEAN CORPUSCULAR HGB CONC 32.5 g/dl (32.0-36.5); MEAN CORPUSCULAR VOLUME 103.5 fl (80.0-96.0); PLATELET COUNT, AUTOMATED 172 10^3/uL (150-450); RED BLOOD COUNT 3.39 10^6/uL (4.00-5.40); WHITE BLOOD COUNT 7.7 10^3/uL (4.0-10.0)
[2022-09-14 07:02] LABS: CALCIUM LEVEL 8.4 MG/DL (8.3-10.6); CREATININE FOR GFR 1.23 MG/DL (0.55-1.30); POTASSIUM SERUM 4.2 MMOL/L (3.5-5.1)
[2022-09-14] MEDS: lamoTRIgine 100MG TAB PO SCH (08:36)
[2022-09-14] MEDS: MULTIVITAMINS/MINERALS THERAP 1 TAB PO SCH (08:36)
[2022-09-14] MEDS: DOCUSATE SODIUM 100MG CAPSULE PO SCH (08:36)
[2022-09-14] MEDS: ASCORBIC ACID 500 MG TAB PO SCH (08:36)
[2022-09-14] MEDS: TOPIRAMATE (TopAMAX) 100 MG TAB PO SCH (08:37)
[2022-09-14] MEDS: ENOXAPARIN 40MG/0.4ML SYRINGE (J1650 PER 10MG) SC SCH (08:37)
[2022-09-14] MEDS ORDERED: levETIRAcetam 250MG TABLET (KEPPRA) PO SCH (09:00)
[2022-09-14] MEDS ORDERED: LEVO1TAB39 PO (09:12)
[2022-09-14] MEDS ORDERED: KEPP250T5 PO ×2 (09:12)
[2022-09-14] MEDS ORDERED: LAMO100T80 PO (09:12)
[2022-09-15 16:09] LABS: LAMOTRIGINE (LAMICTAL) 18.5 ug/mL (2.0-20.0); TOPIRAMATE LEVEL 19.3 ug/mL (2.0-25.0)
[2022-09-15] MEDS ORDERED: DIVA500T94 (18:36)
[2022-09-15] MEDS ORDERED: LAMO100T3 PO (18:45)
[2022-09-15] MEDS ORDERED: LEVE10003 PO (18:45)
[2022-09-15] MEDS ORDERED: TOPI200T7 PO (19:31)
[2022-09-15] MEDS ORDERED: LEVE500T5 PO (19:31)
[2022-09-15] MEDS ORDERED: LEVO1TAB39 PO (19:31)
== END 2022-09-14 14:01 | disposition home or self-care (01) | DRG 690 ==
LOC: EDBD 17:36 → M ED 17:36 → M ED INP 23:33 → M MSPAV 09-13 01:05
PROVIDERS: ADMIT Family Medicine; ATTEND Family Medicine
DX: N39.0 Urinary tract infection, site not specified (principal); I69.351 Hemiplegia and hemiparesis following cerebral infarction affecting right dominant side; G80.9 Cerebral palsy, unspecified; G47.33 Obstructive sleep apnea (adult) (pediatric); E16.2 Hypoglycemia, unspecified; Z79.82 Long term (current) use of aspirin; Z79.899 Other long term (current) drug therapy; Z88.1 Allergy status to other antibiotic agents; Z88.8 Allergy status to other drugs, medicaments and biological substances; Z91.048 Other nonmedicinal substance allergy status; H40.9 Unspecified glaucoma; I10 Essential (primary) hypertension; M19.90 Unspecified osteoarthritis, unspecified site; N32.81 Overactive bladder; G40.909 Epilepsy, unspecified, not intractable, without status epilepticus; Z85.44 Personal history of malignant neoplasm of other female genital organs

== ENCOUNTER 2022-09-15 13:25 | Observation (INO) | payer MEDICARE, MEDICAID ==
[~2022-09-15] VITALS: Ht 162.6 cm; Wt 85.5 kg
[~2022-09-15 13:25] MED LIST changes: +DIVA500T94 PO; +KEPP250T5 PO; +LAMO100T80 PO; +LAMO200T3 PO; +LEVE500T5 PO; +LEVO1TAB39 PO; +THERTAB52 PO; +[UNRECOGNIZED DRUG - OTHER] PO
[2022-09-15 15:09] LABS: BASO % 0.2 % (0.0-1.0); EOS # 0.2 10^3/uL (0.0-0.5); EOS % 2.3 % (0.0-3.0); HEMATOCRIT 40.2 % (36.0-47.0); HEMOGLOBIN 12.7 g/dl (12.0-15.5); LYMPH # 2.1 10^3/uL (1.5-5.0); LYMPH % 22.7 % (24.0-44.0); MEAN CORPUSCULAR HGB CONC 31.6 g/dl (32.0-36.5); MEAN CORPUSCULAR VOLUME 104.4 fl (80.0-96.0); MONO # 0.6 10^3/uL (0.0-0.8); MONO % 6.8 % (2.0-8.0); NEUTROPHILS # 6.3 10^3/uL (1.5-8.5); NEUTROPHILS % 67.7 % (36.0-66.0); PLATELET COUNT, AUTOMATED 158 10^3/uL (150-450); RED BLOOD COUNT 3.85 10^6/uL (4.00-5.40); WHITE BLOOD COUNT 9.3 10^3/uL (4.0-10.0)
[2022-09-15 15:21] LABS: INR 0.98; PROTHROMBIN TIME 13.2 SECONDS (12.5-14.5)
[2022-09-15 15:32] LABS: CALCIUM LEVEL 10.6 MG/DL (8.3-10.6); CK-MB VALUE MASS 1.2 NG/ML (<3.6); CREATININE FOR GFR 1.01 MG/DL (0.55-1.30); GLOMERULAR FILTRATION RATE 57.7 (>39); POTASSIUM SERUM 4.2 MMOL/L (3.5-5.1)
[2022-09-15 15:46] LABS: MB/CK RELATIVE INDEX 1.62 (< OR =4)
[2022-09-15 16:38] LABS: MB/CK RELATIVE INDEX 1.4 (< OR =4)
[2022-09-15] MEDS ORDERED: DIVA500T94 (18:36)
[2022-09-15] MEDS ORDERED: LAMO100T3 PO (18:45)
[2022-09-15] MEDS ORDERED: LEVE10003 PO (18:45)
[2022-09-15] MEDS ORDERED: GLUCAGON INJ 1MG VIAL SC PRN (19:00)
[2022-09-15] MEDS ORDERED: DEXTROSE 50% 50ML SYRINGE IV PRN (19:00)
[2022-09-15] MEDS ORDERED: GLUCOSE 4GM CHEW TABLET PO PRN (19:00)
[2022-09-15] MEDS ORDERED: ACETAMINOPHEN TAB 650MG DOSE (2X325MG) PO PRN (19:00)
[2022-09-15] MEDS ORDERED: LIDOCAINE 5% (LIDODERM) PATCH TD PRN (19:05)
[2022-09-15] MEDS ORDERED: LEVE500T5 PO (19:31)
[2022-09-15] MEDS ORDERED: TOPI200T7 PO (19:31)
[2022-09-15] MEDS ORDERED: LEVO1TAB39 PO (19:31)
[2022-09-15] MEDS ORDERED: HOME MED LIST COMPLETE! XX SCH (19:35)
[2022-09-15 20:23] LABS: HEMOGLOBIN A1c 5.1 % (4.0-6.0)
[2022-09-15 21:00] VITALS: BP 132/71
[2022-09-15] MEDS: ASPIRIN 81MG ENTERIC TABLET PO SCH (21:26)
[2022-09-15] MEDS: TOPIRAMATE (TopAMAX) 100 MG TAB PO SCH (21:27)
[2022-09-15] MEDS: levETIRAcetam 250MG TABLET (KEPPRA) PO SCH (21:27)
[2022-09-15] MEDS: ASCORBIC ACID 500 MG TAB PO SCH (21:27)
[2022-09-15] MEDS: lamoTRIgine 100MG TAB PO SCH (21:27)
[2022-09-15] MEDS: DOCUSATE SODIUM 100MG CAPSULE PO SCH (21:27)
[2022-09-16] MEDS: BRIMONIDINE 0.15% OPHTH SOLN 5 ML OU SCH ×4 (00:27→20:12)
[2022-09-16] MEDS: TIMOLOL MALEATE 0.5% OPHTH SOLN 5 ML OU SCH ×3 (00:27→20:12)
[2022-09-16] MEDS: LATANOPROST 0.005% OPHTH SOLN 2.5 ML OU SCH ×2 (00:27→20:12)
[2022-09-16] MEDS: LevoFLOXacin 500 MG TABLET PO ONE ×2 (05:53→06:23)
[2022-09-16 06:00] VITALS: BP 130/71
[2022-09-16] MEDS ORDERED: LevoFLOXacin IV 500 MG in IV 1 EA IV ONE (06:15)
[2022-09-16 07:27] LABS: HEMATOCRIT 36.6 % (36.0-47.0); HEMOGLOBIN 11.9 g/dl (12.0-15.5); MEAN CORPUSCULAR HEMOGLOBIN 33.5 pg (27.0-33.0); MEAN CORPUSCULAR HGB CONC 32.5 g/dl (32.0-36.5); MEAN CORPUSCULAR VOLUME 103.1 fl (80.0-96.0); PLATELET COUNT, AUTOMATED 170 10^3/uL (150-450); RED BLOOD COUNT 3.55 10^6/uL (4.00-5.40); WHITE BLOOD COUNT 7.8 10^3/uL (4.0-10.0)
[2022-09-16] MEDS ORDERED: LORATADINE 5 MG HALF-TAB PO PRN (07:35)
[2022-09-16] MEDS ORDERED: diphenhydrAMINE 50MG/ML VIAL IM PRN (07:35)
[2022-09-16] MEDS ORDERED: LevoFLOXacin 250 MG TABLET PO ONE (07:55)
[2022-09-16] MEDS ORDERED: LORATADINE 10 MG TAB PO PRN (08:01)
[2022-09-16] MEDS ORDERED: PILL CUTTER 1 EACH XX PRN (08:05)
[2022-09-16] MEDS: hydroCHLOROthiazide 12.5 MG CAPSULE PO SCH (08:08)
[2022-09-16] MEDS: ENOXAPARIN 40MG/0.4ML SYRINGE (J1650 PER 10MG) SC SCH (08:08)
[2022-09-16] MEDS: oxyBUTYnin *DITROPAN XL* 5 MG TABCR PO SCH (08:10)
[2022-09-16] MEDS: levETIRAcetam 250MG TABLET (KEPPRA) PO SCH ×2 (08:10→20:14)
[2022-09-16] MEDS: SPIRONOLACTONE 12.5MG PER 1/2 TABLET PO SCH (08:10)
[2022-09-16] MEDS: DOCUSATE SODIUM 100MG CAPSULE PO SCH ×2 (08:10→20:13)
[2022-09-16] MEDS: ASCORBIC ACID 500 MG TAB PO SCH ×2 (08:10→20:13)
[2022-09-16] MEDS: lamoTRIgine 100MG TAB PO SCH ×2 (08:10→20:13)
[2022-09-16 08:12] LABS: CALCIUM LEVEL 9.5 MG/DL (8.3-10.6); CREATININE FOR GFR 1.1 MG/DL (0.55-1.30); GLOMERULAR FILTRATION RATE 52.3 (>39); MAGNESIUM LEVEL 1.8 MG/DL (1.8-2.4); POTASSIUM SERUM 4.4 MMOL/L (3.5-5.1)
[2022-09-16] MEDS: OLOPATADINE 0.1% OPHTH SOL 5ML(PATANOL) OU SCH (08:12)
[2022-09-16] MEDS: TOPIRAMATE (TopAMAX) 100 MG TAB PO SCH ×2 (08:14→20:13)
[2022-09-16 11:15] VITALS: BP 98/56
[2022-09-16] MEDS ORDERED: PROHANCE 279.3MG/ML 5ML VIAL As Ordered ONE (12:00)
[2022-09-16] MEDS ORDERED: NS 500 ML IV SCH (12:30)
[2022-09-16] MEDS: NS 1,000 ML IV SCH (12:44)
[2022-09-16 14:00] VITALS: BP 95/58
[2022-09-16 14:32] VITALS: BP 100/55
[2022-09-16] MEDS: ASPIRIN 81MG ENTERIC TABLET PO SCH (20:13)
[2022-09-16 20:30] VITALS: BP_SYST 107; BP_SYST 114; BP_DIAS 61
[2022-09-17 05:10] VITALS: BP 109/61
[2022-09-17] MEDS: NS 1,000 ML IV SCH ×3 (05:56→20:52)
[2022-09-17 06:29] LABS: BASO % 0.1 % (0.0-1.0); EOS # 0.3 10^3/uL (0.0-0.5); EOS % 3.4 % (0.0-3.0); HEMATOCRIT 33.2 % (36.0-47.0); HEMOGLOBIN 10.7 g/dl (12.0-15.5); LYMPH # 2.9 10^3/uL (1.5-5.0); LYMPH % 34.4 % (24.0-44.0); MEAN CORPUSCULAR HEMOGLOBIN 33.3 pg (27.0-33.0); MEAN CORPUSCULAR HGB CONC 32.2 g/dl (32.0-36.5); MEAN CORPUSCULAR VOLUME 103.4 fl (80.0-96.0); MONO # 0.7 10^3/uL (0.0-0.8); MONO % 8.2 % (2.0-8.0); NEUTROPHILS # 4.5 10^3/uL (1.5-8.5); NEUTROPHILS % 53.7 % (36.0-66.0); PLATELET COUNT, AUTOMATED 161 10^3/uL (150-450); RED BLOOD COUNT 3.21 10^6/uL (4.00-5.40); WHITE BLOOD COUNT 8.3 10^3/uL (4.0-10.0)
[2022-09-17 07:00] LABS: ALBUMIN 2.5 G/DL (3.2-5.2); BILIRUBIN,TOTAL 0.2 MG/DL (0.3-1.2); CALCIUM LEVEL 8.3 MG/DL (8.3-10.6); CREATININE FOR GFR 1.25 MG/DL (0.55-1.30); GLOMERULAR FILTRATION RATE 45.1 (>39); MAGNESIUM LEVEL 1.8 MG/DL (1.8-2.4); POTASSIUM SERUM 3.7 MMOL/L (3.5-5.1); TOTAL PROTEIN 5.7 G/DL (5.7-8.2)
[2022-09-17] MEDS: levETIRAcetam 250MG TABLET (KEPPRA) PO SCH ×2 (08:49→19:56)
[2022-09-17] MEDS: DOCUSATE SODIUM 100MG CAPSULE PO SCH ×2 (08:50→19:57)
[2022-09-17] MEDS: TOPIRAMATE (TopAMAX) 100 MG TAB PO SCH ×2 (08:50→19:57)
[2022-09-17] MEDS: oxyBUTYnin *DITROPAN XL* 5 MG TABCR PO SCH (08:50)
[2022-09-17] MEDS: lamoTRIgine 100MG TAB PO SCH ×2 (08:50→19:57)
[2022-09-17] MEDS: hydroCHLOROthiazide 12.5 MG CAPSULE PO SCH (08:50)
[2022-09-17] MEDS: ASCORBIC ACID 500 MG TAB PO SCH ×2 (08:50→19:56)
[2022-09-17] MEDS: SPIRONOLACTONE 12.5MG PER 1/2 TABLET PO SCH (08:50)
[2022-09-17] MEDS: OLOPATADINE 0.1% OPHTH SOL 5ML(PATANOL) OU SCH (08:51)
[2022-09-17] MEDS: TIMOLOL MALEATE 0.5% OPHTH SOLN 5 ML OU SCH ×2 (08:51→19:58)
[2022-09-17] MEDS: BRIMONIDINE 0.15% OPHTH SOLN 5 ML OU SCH ×3 (08:51→19:58)
[2022-09-17] MEDS: ENOXAPARIN 40MG/0.4ML SYRINGE (J1650 PER 10MG) SC SCH ×2 (08:51→09:00)
[2022-09-17] MEDS ORDERED: LACTULOSE 20GM/30ML SYRUP UDC PO ONE (09:00)
[2022-09-17] MEDS: SENOKOT S TAB PO SCH ×2 (09:30→19:57)
[2022-09-17] MEDS ORDERED: ISOVUE-370 76% 100ML VIAL As Ordered ONE (12:54)
[2022-09-17 13:45] VITALS: BP_SYST 111; BP_SYST 116; BP_SYST 117; BP_DIAS 66; BP_DIAS 68
[2022-09-17 14:00] VITALS: BP 129/70
[2022-09-17 15:09] LABS: INSULIN LEVEL 6.2 uIU/mL (2.6-24.9)
[2022-09-17] MEDS: ASPIRIN 81MG ENTERIC TABLET PO SCH (19:57)
[2022-09-17] MEDS: LATANOPROST 0.005% OPHTH SOLN 2.5 ML OU SCH (19:58)
[2022-09-17 22:00] VITALS: BP 117/60
[2022-09-18 05:38] LABS: BASO % 0.2 % (0.0-1.0); EOS # 0.3 10^3/uL (0.0-0.5); EOS % 3.6 % (0.0-3.0); HEMATOCRIT 32.7 % (36.0-47.0); HEMOGLOBIN 10.4 g/dl (12.0-15.5); LYMPH # 2.5 10^3/uL (1.5-5.0); LYMPH % 28.1 % (24.0-44.0); MEAN CORPUSCULAR HEMOGLOBIN 33.2 pg (27.0-33.0); MEAN CORPUSCULAR HGB CONC 31.8 g/dl (32.0-36.5); MEAN CORPUSCULAR VOLUME 104.5 fl (80.0-96.0); MONO # 0.8 10^3/uL (0.0-0.8); MONO % 9.3 % (2.0-8.0); NEUTROPHILS # 5.2 10^3/uL (1.5-8.5); NEUTROPHILS % 58.5 % (36.0-66.0); PLATELET COUNT, AUTOMATED 154 10^3/uL (150-450); RED BLOOD COUNT 3.13 10^6/uL (4.00-5.40); WHITE BLOOD COUNT 8.8 10^3/uL (4.0-10.0)
[2022-09-18 06:00] VITALS: BP 118/61
[2022-09-18 06:01] LABS: ALBUMIN 2.5 G/DL (3.2-5.2); ALKALINE PHOSPHATASE 109 U/L (46-116); ALT/SGPT 20 U/L (7.0-40); AST/SGOT 21 U/L (<34); BILIRUBIN,TOTAL < 0.2 MG/DL (0.3-1.2); BLOOD UREA NITROGEN 35 MG/DL (9-23); CALCIUM LEVEL 7.8 MG/DL (8.3-10.6); CARBON DIOXIDE LEVEL 23 MMOL/L (20-31); CHLORIDE LEVEL 113 MMOL/L (98-107); CREATININE FOR GFR 1.05 MG/DL (0.55-1.30); GLOMERULAR FILTRATION RATE 55.2 (>39); GLUCOSE, FASTING 92 MG/DL (74-106); POTASSIUM SERUM 3.7 MMOL/L (3.5-5.1); SODIUM LEVEL 142 MMOL/L (136-145); TOTAL PROTEIN 5.4 G/DL (5.7-8.2)
[2022-09-18] MEDS: ENOXAPARIN 40MG/0.4ML SYRINGE (J1650 PER 10MG) SC SCH (09:00)
[2022-09-18] MEDS: levETIRAcetam 250MG TABLET (KEPPRA) PO SCH ×2 (09:33→19:57)
[2022-09-18] MEDS: oxyBUTYnin *DITROPAN XL* 5 MG TABCR PO SCH (09:33)
[2022-09-18] MEDS: SPIRONOLACTONE 12.5MG PER 1/2 TABLET PO SCH (09:33)
[2022-09-18] MEDS: DOCUSATE SODIUM 100MG CAPSULE PO SCH ×2 (09:33→19:57)
[2022-09-18] MEDS: OLOPATADINE 0.1% OPHTH SOL 5ML(PATANOL) OU SCH (09:34)
[2022-09-18] MEDS: lamoTRIgine 100MG TAB PO SCH ×2 (09:34→19:56)
[2022-09-18] MEDS: ASCORBIC ACID 500 MG TAB PO SCH ×2 (09:34→19:57)
[2022-09-18] MEDS: BRIMONIDINE 0.15% OPHTH SOLN 5 ML OU SCH ×3 (09:34→19:57)
[2022-09-18] MEDS: TIMOLOL MALEATE 0.5% OPHTH SOLN 5 ML OU SCH ×2 (09:34→19:57)
[2022-09-18] MEDS: SENOKOT S TAB PO SCH ×2 (09:34→19:56)
[2022-09-18] MEDS: hydroCHLOROthiazide 12.5 MG CAPSULE PO SCH (09:34)
[2022-09-18] MEDS: TOPIRAMATE (TopAMAX) 100 MG TAB PO SCH ×2 (09:34→19:56)
[2022-09-18] MEDS: ASPIRIN 81MG ENTERIC TABLET PO SCH (19:56)
[2022-09-18] MEDS: LATANOPROST 0.005% OPHTH SOLN 2.5 ML OU SCH (19:57)
[2022-09-19 06:00] VITALS: BP 101/57
[2022-09-19 06:16] LABS: BASO % 0.3 % (0.0-1.0); EOS # 0.3 10^3/uL (0.0-0.5); EOS % 3.8 % (0.0-3.0); HEMATOCRIT 30.6 % (36.0-47.0); HEMOGLOBIN 9.9 g/dl (12.0-15.5); LYMPH # 2.5 10^3/uL (1.5-5.0); MEAN CORPUSCULAR HEMOGLOBIN 33.4 pg (27.0-33.0); MEAN CORPUSCULAR HGB CONC 32.4 g/dl (32.0-36.5); MEAN CORPUSCULAR VOLUME 103.4 fl (80.0-96.0); MONO # 0.8 10^3/uL (0.0-0.8); MONO % 8.9 % (2.0-8.0); NEUTROPHILS # 5.3 10^3/uL (1.5-8.5); NEUTROPHILS % 58.8 % (36.0-66.0); PLATELET COUNT, AUTOMATED 154 10^3/uL (150-450); RED BLOOD COUNT 2.96 10^6/uL (4.00-5.40)
[2022-09-19 06:43] LABS: ALBUMIN 2.5 G/DL (3.2-5.2); ALKALINE PHOSPHATASE 98 U/L (46-116); ALT/SGPT 21 U/L (7.0-40); AST/SGOT 27 U/L (<34); BILIRUBIN,TOTAL 0.2 MG/DL (0.3-1.2); BLOOD UREA NITROGEN 31 MG/DL (9-23); CALCIUM LEVEL 8.2 MG/DL (8.3-10.6); CARBON DIOXIDE LEVEL 22 MMOL/L (20-31); CHLORIDE LEVEL 114 MMOL/L (98-107); CREATININE FOR GFR 0.96 MG/DL (0.55-1.30); GLOMERULAR FILTRATION RATE > 60.0 (>39); GLUCOSE, FASTING 83 MG/DL (74-106); POTASSIUM SERUM 3.8 MMOL/L (3.5-5.1); SODIUM LEVEL 144 MMOL/L (136-145); TOTAL PROTEIN 5.4 G/DL (5.7-8.2)
[2022-09-19] MEDS ORDERED: HYDROCORTISONE 1% OINTMENT 30GM TOP PRN (08:45)
[2022-09-19] MEDS: ENOXAPARIN 40MG/0.4ML SYRINGE (J1650 PER 10MG) SC SCH (09:00)
[2022-09-19] MEDS: SPIRONOLACTONE 12.5MG PER 1/2 TABLET PO SCH (10:11)
[2022-09-19] MEDS: SENOKOT S TAB PO SCH ×2 (10:11→20:03)
[2022-09-19] MEDS: hydroCHLOROthiazide 12.5 MG CAPSULE PO SCH (10:12)
[2022-09-19] MEDS: ASCORBIC ACID 500 MG TAB PO SCH ×2 (10:12→20:01)
[2022-09-19] MEDS: TOPIRAMATE (TopAMAX) 100 MG TAB PO SCH ×2 (10:12→20:03)
[2022-09-19] MEDS: DOCUSATE SODIUM 100MG CAPSULE PO SCH ×2 (10:12→20:03)
[2022-09-19] MEDS: oxyBUTYnin *DITROPAN XL* 5 MG TABCR PO SCH (10:12)
[2022-09-19] MEDS: lamoTRIgine 100MG TAB PO SCH ×2 (10:12→20:02)
[2022-09-19] MEDS: levETIRAcetam 250MG TABLET (KEPPRA) PO SCH ×2 (10:13→20:02)
[2022-09-19] MEDS: TIMOLOL MALEATE 0.5% OPHTH SOLN 5 ML OU SCH ×2 (10:25→20:01)
[2022-09-19] MEDS: OLOPATADINE 0.1% OPHTH SOL 5ML(PATANOL) OU SCH (10:25)
[2022-09-19] MEDS: BRIMONIDINE 0.15% OPHTH SOLN 5 ML OU SCH ×3 (10:25→20:01)
[2022-09-19] MEDS: ASPIRIN 81MG ENTERIC TABLET PO SCH (20:01)
[2022-09-19] MEDS: LATANOPROST 0.005% OPHTH SOLN 2.5 ML OU SCH (20:02)
[2022-09-20 06:00] VITALS: BP 132/63
[2022-09-20] MEDS: lamoTRIgine 100MG TAB PO SCH ×2 (09:46→20:04)
[2022-09-20] MEDS: levETIRAcetam 250MG TABLET (KEPPRA) PO SCH ×2 (09:46→20:04)
[2022-09-20] MEDS: hydroCHLOROthiazide 12.5 MG CAPSULE PO SCH (09:47)
[2022-09-20] MEDS: DOCUSATE SODIUM 100MG CAPSULE PO SCH ×2 (09:47→20:05)
[2022-09-20] MEDS: ENOXAPARIN 40MG/0.4ML SYRINGE (J1650 PER 10MG) SC SCH (09:47)
[2022-09-20] MEDS: ASCORBIC ACID 500 MG TAB PO SCH ×2 (09:47→20:05)
[2022-09-20] MEDS: oxyBUTYnin *DITROPAN XL* 5 MG TABCR PO SCH (09:47)
[2022-09-20] MEDS: TOPIRAMATE (TopAMAX) 100 MG TAB PO SCH ×2 (09:47→20:04)
[2022-09-20] MEDS: OLOPATADINE 0.1% OPHTH SOL 5ML(PATANOL) OU SCH (09:49)
[2022-09-20] MEDS: BRIMONIDINE 0.15% OPHTH SOLN 5 ML OU SCH ×3 (09:49→20:03)
[2022-09-20] MEDS: TIMOLOL MALEATE 0.5% OPHTH SOLN 5 ML OU SCH ×2 (09:49→20:03)
[2022-09-20] MEDS: SENOKOT S TAB PO SCH ×2 (09:56→20:05)
[2022-09-20] MEDS: SPIRONOLACTONE 12.5MG PER 1/2 TABLET PO SCH (09:56)
[2022-09-20] MEDS: ASPIRIN 81MG ENTERIC TABLET PO SCH (20:04)
[2022-09-20] MEDS: LATANOPROST 0.005% OPHTH SOLN 2.5 ML OU SCH (20:04)
[2022-09-21 02:55] VITALS: BP 138/70
[2022-09-21] MEDS ORDERED: LORazepam 1 MG TAB PO ONE (04:00)
[2022-09-21 06:00] VITALS: BP 110/55
[2022-09-21] MEDS: DOCUSATE SODIUM 100MG CAPSULE PO SCH ×2 (09:28→22:06)
[2022-09-21] MEDS: oxyBUTYnin *DITROPAN XL* 5 MG TABCR PO SCH (09:28)
[2022-09-21] MEDS: hydroCHLOROthiazide 12.5 MG CAPSULE PO SCH (09:28)
[2022-09-21] MEDS: ASCORBIC ACID 500 MG TAB PO SCH ×2 (09:28→22:07)
[2022-09-21] MEDS: SENOKOT S TAB PO SCH ×2 (09:28→22:07)
[2022-09-21] MEDS: levETIRAcetam 250MG TABLET (KEPPRA) PO SCH ×2 (09:28→22:07)
[2022-09-21] MEDS: lamoTRIgine 100MG TAB PO SCH ×2 (09:28→22:05)
[2022-09-21] MEDS: TOPIRAMATE (TopAMAX) 100 MG TAB PO SCH ×2 (09:28→22:06)
[2022-09-21] MEDS: ENOXAPARIN 40MG/0.4ML SYRINGE (J1650 PER 10MG) SC SCH (09:29)
[2022-09-21] MEDS: SPIRONOLACTONE 12.5MG PER 1/2 TABLET PO SCH (09:29)
[2022-09-21] MEDS: TIMOLOL MALEATE 0.5% OPHTH SOLN 5 ML OU SCH ×2 (09:29→22:08)
[2022-09-21] MEDS: OLOPATADINE 0.1% OPHTH SOL 5ML(PATANOL) OU SCH (09:29)
[2022-09-21] MEDS: BRIMONIDINE 0.15% OPHTH SOLN 5 ML OU SCH ×3 (09:29→22:08)
[2022-09-21] MEDS: ASPIRIN 81MG ENTERIC TABLET PO SCH (22:08)
[2022-09-21] MEDS: LATANOPROST 0.005% OPHTH SOLN 2.5 ML OU SCH (22:08)
[2022-09-22 05:20] VITALS: BP 110/61
[2022-09-22] MEDS: ENOXAPARIN 40MG/0.4ML SYRINGE (J1650 PER 10MG) SC SCH (09:00)
[2022-09-22] MEDS: DOCUSATE SODIUM 100MG CAPSULE PO SCH ×3 (09:00→19:56)
[2022-09-22] MEDS: SENOKOT S TAB PO SCH ×3 (09:00→19:56)
[2022-09-22] MEDS: oxyBUTYnin *DITROPAN XL* 5 MG TABCR PO SCH (11:35)
[2022-09-22] MEDS: SPIRONOLACTONE 12.5MG PER 1/2 TABLET PO SCH (11:35)
[2022-09-22] MEDS: lamoTRIgine 100MG TAB PO SCH ×2 (11:35→19:56)
[2022-09-22] MEDS: hydroCHLOROthiazide 12.5 MG CAPSULE PO SCH (11:35)
[2022-09-22] MEDS: ASCORBIC ACID 500 MG TAB PO SCH ×2 (11:35→19:56)
[2022-09-22] MEDS: levETIRAcetam 250MG TABLET (KEPPRA) PO SCH ×2 (11:35→19:56)
[2022-09-22] MEDS: TOPIRAMATE (TopAMAX) 100 MG TAB PO SCH ×2 (11:35→19:55)
[2022-09-22] MEDS: OLOPATADINE 0.1% OPHTH SOL 5ML(PATANOL) OU SCH (11:36)
[2022-09-22] MEDS: BRIMONIDINE 0.15% OPHTH SOLN 5 ML OU SCH ×3 (11:36→19:57)
[2022-09-22] MEDS: TIMOLOL MALEATE 0.5% OPHTH SOLN 5 ML OU SCH ×2 (11:36→19:57)
[2022-09-22] MEDS: ASPIRIN 81MG ENTERIC TABLET PO SCH (19:56)
[2022-09-22] MEDS: LATANOPROST 0.005% OPHTH SOLN 2.5 ML OU SCH (19:57)
[2022-09-23 06:00] VITALS: BP 108/58
[2022-09-23] MEDS: oxyBUTYnin *DITROPAN XL* 5 MG TABCR PO SCH (08:13)
[2022-09-23] MEDS: TOPIRAMATE (TopAMAX) 100 MG TAB PO SCH (08:13)
[2022-09-23] MEDS: ENOXAPARIN 40MG/0.4ML SYRINGE (J1650 PER 10MG) SC SCH (08:14)
[2022-09-23] MEDS: ASCORBIC ACID 500 MG TAB PO SCH (08:14)
[2022-09-23] MEDS: levETIRAcetam 250MG TABLET (KEPPRA) PO SCH (08:14)
[2022-09-23] MEDS: hydroCHLOROthiazide 12.5 MG CAPSULE PO SCH (08:14)
[2022-09-23] MEDS: DOCUSATE SODIUM 100MG CAPSULE PO SCH (08:14)
[2022-09-23] MEDS: SENOKOT S TAB PO SCH (08:14)
[2022-09-23] MEDS: lamoTRIgine 100MG TAB PO SCH (08:14)
[2022-09-23] MEDS: OLOPATADINE 0.1% OPHTH SOL 5ML(PATANOL) OU SCH (08:15)
[2022-09-23] MEDS: BRIMONIDINE 0.15% OPHTH SOLN 5 ML OU SCH (08:15)
[2022-09-23] MEDS: TIMOLOL MALEATE 0.5% OPHTH SOLN 5 ML OU SCH (08:15)
[2022-09-23] MEDS: SPIRONOLACTONE 12.5MG PER 1/2 TABLET PO SCH (08:17)
== END 2022-09-23 12:12 | disposition home or self-care (01) ==
LOC: M ED 13:25 → EDBD 13:25 → EEVIPCON 18:58 → INTOOBSV 18:58 → M ED INP 18:58 → ENRESERV 19:56 → M MSPAV 20:54
PROVIDERS: ADMIT Family Medicine; ATTEND Internal Medicine Nephrology
DX: G93.41 Metabolic encephalopathy (principal); E16.2 Hypoglycemia, unspecified; R47.81 Slurred speech; R41.82 Altered mental status, unspecified; R26.81 Unsteadiness on feet; M25.562 Pain in left knee; M17.12 Unilateral primary osteoarthritis, left knee; I69.351 Hemiplegia and hemiparesis following cerebral infarction affecting right dominant side; G80.9 Cerebral palsy, unspecified; F79 Unspecified intellectual disabilities; N39.0 Urinary tract infection, site not specified; I65.22 Occlusion and stenosis of left carotid artery; G40.909 Epilepsy, unspecified, not intractable, without status epilepticus; I10 Essential (primary) hypertension; N32.81 Overactive bladder; H40.9 Unspecified glaucoma; G31.1 Senile degeneration of brain, not elsewhere classified; G47.33 Obstructive sleep apnea (adult) (pediatric); Z85.44 Personal history of malignant neoplasm of other female genital organs; Z79.899 Other long term (current) drug therapy; Z79.2 Long term (current) use of antibiotics; Z79.82 Long term (current) use of aspirin; Z88.8 Allergy status to other drugs, medicaments and biological substances; Z88.1 Allergy status to other antibiotic agents; Z91.048 Other nonmedicinal substance allergy status
CPT/HCPCS: 36415; 70450; 70498; 70544; 70551; 70552; 71045; 73564; 80048; 80053; 80180; 81001; 82140; 82550; 82553; 83036; 83525; 83735; 84145; 84484; 84681; 85025; 85027; 85610; 85730; 87040; 87486; 87581; 87633; 87798; 93005; 93041; 93971; 94760; 96361; 96372; 96374; 96376; 97116; 97161; 97165; 97530; 97535; 99285; A9576; G0378; J1650; J1956; Q9967

== ENCOUNTER → 2022-11-15 | Outpatient (CLI) | payer MEDICARE, MEDICAID ==
[~2022-11-15] MED LIST changes: +DIVA500T94; +LAMO100T3 PO; +LEVE10003 PO
== END ==
LOC: M WHC 08:33
PROVIDERS: ATTEND Nurse Practitioner Family
DX: Z12.31 Encounter for screening mammogram for malignant neoplasm of breast (principal)

== ENCOUNTER → 2023-05-18 | Outpatient (CLI) | payer MEDICARE, MEDICAID ==
[2023-05-18 11:49] LABS: BASO % 0.3 % (0.0-1.0); EOS # 0.2 10^3/uL (0.0-0.5); EOS % 2.9 % (0.0-3.0); HEMATOCRIT 40.3 % (36.0-47.0); LYMPH # 1.7 10^3/uL (1.5-5.0); LYMPH % 23.3 % (24.0-44.0); MEAN CORPUSCULAR HEMOGLOBIN 33.2 pg (27.0-33.0); MEAN CORPUSCULAR HGB CONC 32.3 g/dl (32.0-36.5); MEAN CORPUSCULAR VOLUME 103.1 fl (80.0-96.0); MONO # 0.5 10^3/uL (0.0-0.8); MONO % 6.7 % (2.0-8.0); NEUTROPHILS # 4.8 10^3/uL (1.5-8.5); NEUTROPHILS % 66.5 % (36.0-66.0); PLATELET COUNT, AUTOMATED 232 10^3/uL (150-450); RED BLOOD COUNT 3.91 10^6/uL (4.00-5.40); WHITE BLOOD COUNT 7.2 10^3/uL (4.0-10.0)
[2023-05-18 12:14] LABS: VALPROIC ACID (DEPAKOTE) < 3.0 UG/ML (50.0-100.0)
[2023-05-18 12:19] LABS: ALBUMIN 3.6 G/DL (3.2-5.2); ALKALINE PHOSPHATASE 113 U/L (46-116); ALT/SGPT 13 U/L (7.0-40); AST/SGOT 13 U/L (<34); BILIRUBIN,TOTAL 0.4 MG/DL (0.3-1.2); BLOOD UREA NITROGEN 28 MG/DL (9-23); CALCIUM LEVEL 9.7 MG/DL (8.3-10.6); CARBON DIOXIDE LEVEL 27 MMOL/L (20-31); CHLORIDE LEVEL 106 MMOL/L (98-107); GLOMERULAR FILTRATION RATE 58.2 (>39); GLUCOSE, FASTING 74 MG/DL (74-106); POTASSIUM SERUM 3.7 MMOL/L (3.5-5.1); SODIUM LEVEL 142 MMOL/L (136-145); TOTAL PROTEIN 6.8 G/DL (5.7-8.2)
[2023-05-20 06:08] LABS: LAMOTRIGINE (LAMICTAL) 11.3 ug/mL (2.0-20.0); TOPIRAMATE LEVEL 22.3 ug/mL (2.0-25.0)
== END ==
LOC: M WUC 08:37
PROVIDERS: ATTEND Psychiatry & Neurology Neurology
DX: G40.89 Other seizures (principal); I10 Essential (primary) hypertension

== ENCOUNTER → 2023-05-18 | Outpatient (CLI) | payer MEDICARE, MEDICAID ==
[2023-05-18 12:22] LABS: ALBUMIN 3.6 G/DL (3.2-5.2); BILIRUBIN,TOTAL 0.4 MG/DL (0.3-1.2); CALCIUM LEVEL 9.6 MG/DL (8.3-10.6); CHOLESTEROL RISK RATIO 2.32 (<5); GLOMERULAR FILTRATION RATE 58.2 (>39); HDL CHOLESTEROL 61.6 MG/DL (>40); LDL CHOLESTEROL 66.2 MG/DL (<100); NON-HDL-C 81.4 MG/DL; POTASSIUM SERUM 3.6 MMOL/L (3.5-5.1); TOTAL PROTEIN 6.9 G/DL (5.7-8.2)
== END ==
LOC: M WUC 08:36
PROVIDERS: ATTEND Nurse Practitioner Family
DX: I10 Essential (primary) hypertension (principal)

== ENCOUNTER 2023-10-14 20:24 | Inpatient (IN) | payer MEDICARE, MEDICAID ==
[~2023-10-14] VITALS: Ht 165.1 cm; Wt 80.7 kg
[2023-10-14 21:33] LABS: BASO % 0.5 % (0.0-1.0); EOS % 0.5 % (0.0-3.0); HEMATOCRIT 32.1 % (36.0-47.0); HEMOGLOBIN 10.5 g/dl (12.0-15.5); LYMPH # 0.9 10^3/uL (1.5-5.0); LYMPH % 13.4 % (24.0-44.0); MEAN CORPUSCULAR HEMOGLOBIN 33.5 pg (27.0-33.0); MEAN CORPUSCULAR HGB CONC 32.7 g/dl (32.0-36.5); MEAN CORPUSCULAR VOLUME 102.6 fl (80.0-96.0); MONO # 0.6 10^3/uL (0.0-0.8); MONO % 9.2 % (2.0-8.0); NEUTROPHILS # 4.9 10^3/uL (1.5-8.5); NEUTROPHILS % 76.1 % (36.0-66.0); PLATELET COUNT, AUTOMATED 141 10^3/uL (150-450); RED BLOOD COUNT 3.13 10^6/uL (4.00-5.40); WHITE BLOOD COUNT 6.4 10^3/uL (4.0-10.0)
[2023-10-14 21:49] LABS: INR 1.18; PARTIAL THROMBOPLASTIN TIME 32.3 SECONDS (24.8-34.2); PROTHROMBIN TIME 14.6 SECONDS (12.5-14.5)
[2023-10-14 21:52] LABS: VENOUS BASE EXCESS -2.8 (-2.0-2.0); VENOUS HCO3 22.6 MMOL/L (23.0-27.0); VENOUS O2 SATURATION 59.9 % (60.0-80.0); VENOUS PARTIAL PRESSURE CO2 41.7 mmHg (38.0-50.0); VENOUS PARTIAL PRESSURE O2 32.6 mmHg (30.0-50.0); VENOUS PH 7.352 UNITS (7.330-7.430); VENOUS STANDARD HCO3 21.4 MMOL/L; VENOUS TOTAL CO2 23.9 MMOL/L (24.0-28.0)
[2023-10-14 21:58] LABS: CK-MB VALUE MASS < 1.0 NG/ML (<3.6)
[2023-10-14 22:00] LABS: AMYLASE 52 U/L (30-118)
[2023-10-14 22:01] LABS: ALBUMIN 2.7 G/DL (3.2-5.2); ALKALINE PHOSPHATASE 82 U/L (46-116); ALT/SGPT 16 U/L (7.0-40); AST/SGOT 20 U/L (<34); BILIRUBIN,DIRECT < 0.1 MG/DL (<0.4); BILIRUBIN,TOTAL 0.2 MG/DL (0.3-1.2); BLOOD UREA NITROGEN 29 MG/DL (9-23); CALCIUM LEVEL 7.8 MG/DL (8.3-10.6); CARBON DIOXIDE LEVEL 22 MMOL/L (20-31); CHLORIDE LEVEL 112 MMOL/L (98-107); CREATININE FOR GFR 1.11 MG/DL (0.55-1.30); GLOMERULAR FILTRATION RATE 51.6 (>39); GLUCOSE, FASTING 119 MG/DL (74-106); POTASSIUM SERUM 3.4 MMOL/L (3.5-5.1); SODIUM LEVEL 143 MMOL/L (136-145); TOTAL PROTEIN 5.6 G/DL (5.7-8.2)
[2023-10-14 22:08] LABS: PROCALCITONIN 0.21 ng/ml
[2023-10-14 22:10] LABS: CPK CREATINE PHOSPHOKINASE 178 U/L (34-145); MB/CK RELATIVE INDEX 0.56 (< OR =4)
[2023-10-14 22:40] LABS: APPEARANCE, URINE HAZY (CLEAR); BACTERIA, URINE AUTO 1+ (NEGATIVE); BILIRUBIN, URINE AUTO NEGATIVE (NEGATIVE); BLOOD, URINE BLOOD NEGATIVE (NEGATIVE); COLOR, URINE YELLOW (YELLOW); GLUCOSE, URINE (UA) AUTO NEGATIVE (NEGATIVE); KETONE, URINE AUTO NEGATIVE (NEGATIVE); LEUKOCYTE ESTERASE, URINE AUTO 1+ (NEGATIVE); MUCUS, URINE SMALL (NEGATIVE); NITRITE, URINE AUTO POSITIVE (NEGATIVE); PROTEIN, URINE AUTO 1+ mg/dL (NEGATIVE); RBC, URINE AUTO 4 /HPF (0-3); SPECIFIC GRAVITY URINE AUTO 1.018 (1.002-1.035); SQUAMOUS EPITHELIAL CELL UR AU 1 /HPF (0-6); UROBILINOGEN, URINE AUTO 0.2 mg/dL (0.0-2.0); WBC, URINE AUTO 49 /HPF (0-3)
[2023-10-14] MEDS: ACETAMINOPHEN 325 MG TAB PO ONE (23:11)
[2023-10-14] MEDS: ONDANSETRON 4MG 2ML VIAL IV ONE (23:25)
[2023-10-14] MEDS ORDERED: HOME MED LIST COMPLETE! XX SCH (23:40)
[2023-10-15] MEDS: LevoFLOXacin IV 750 MG in IV 1 EA IV ONE (00:40)
[2023-10-15] MEDS: NS 1,000 ML IV ONE (00:40)
[2023-10-15] MEDS: OSELTAMIVIR PHOSPHATE 75 MG CAP (TAMIFLU) PO ONE (00:41)
[2023-10-15 01:16] LABS: CK-MB VALUE MASS < 1.0 NG/ML (<3.6)
[2023-10-15 01:20] LABS: CPK CREATINE PHOSPHOKINASE 325 U/L (34-145)
[2023-10-15] MEDS: LR 1,000 ML IV SCH (04:25)
[2023-10-15 05:31] VITALS: BP 121/56; TEMP 98.8; O2SAT 95
[2023-10-15 07:51] LABS: BASO % 0.2 % (0.0-1.0); EOS % 0.7 % (0.0-3.0); HEMATOCRIT 32.2 % (36.0-47.0); HEMOGLOBIN 10.6 g/dl (12.0-15.5); LYMPH # 1.4 10^3/uL (1.5-5.0); LYMPH % 32.6 % (24.0-44.0); MEAN CORPUSCULAR HEMOGLOBIN 33.3 pg (27.0-33.0); MEAN CORPUSCULAR HGB CONC 32.9 g/dl (32.0-36.5); MEAN CORPUSCULAR VOLUME 101.3 fl (80.0-96.0); MONO # 0.5 10^3/uL (0.0-0.8); MONO % 12.2 % (2.0-8.0); NEUTROPHILS # 2.4 10^3/uL (1.5-8.5); NEUTROPHILS % 54.3 % (36.0-66.0); PLATELET COUNT, AUTOMATED 148 10^3/uL (150-450); RED BLOOD COUNT 3.18 10^6/uL (4.00-5.40); WHITE BLOOD COUNT 4.4 10^3/uL (4.0-10.0)
[2023-10-15 08:17] LABS: CALCIUM LEVEL 8.3 MG/DL (8.3-10.6); CREATININE FOR GFR 1.03 MG/DL (0.55-1.30); GLOMERULAR FILTRATION RATE 56.2 (>39); MAGNESIUM LEVEL 1.8 MG/DL (1.8-2.4); POTASSIUM SERUM 3.5 MMOL/L (3.5-5.1)
[2023-10-15 08:19] VITALS: BP 101/57; TEMP 97.7; O2SAT 99
[2023-10-15] MEDS ORDERED: OSELTAMIVIR PHOSPHATE 75 MG CAP (TAMIFLU) PO SCH (09:00)
[2023-10-15] MEDS ORDERED: SPIRONOLACTONE 12.5MG PER 1/2 TABLET PO SCH (09:00)
[2023-10-15] MEDS ORDERED: hydroCHLOROthiazide 12.5 MG CAPSULE PO SCH (09:00)
[2023-10-15] MEDS ORDERED: OLOPATADINE 0.2% OU SCH (09:00)
[2023-10-15] MEDS: DOCUSATE SODIUM 100MG CAPSULE PO SCH (10:57)
[2023-10-15] MEDS: oxyBUTYnin *DITROPAN XL* 5 MG TABCR PO SCH (10:57)
[2023-10-15] MEDS: OSELTAMIVIR PHOSPHATE 30MG CAPSULE PO SCH (10:58)
[2023-10-15] MEDS: MULTIVITAMINS/MINERALS THERAP 1 TAB PO SCH (10:58)
[2023-10-15] MEDS: ASCORBIC ACID 500 MG TAB PO SCH (10:58)
[2023-10-15] MEDS: levETIRAcetam 250MG TABLET (KEPPRA) PO SCH (10:59)
[2023-10-15] MEDS: TOPIRAMATE (TopAMAX) 100 MG TAB PO SCH (10:59)
[2023-10-15] MEDS: CALCIUM/VITAMIN D 500 MG TAB PO SCH (10:59)
[2023-10-15] MEDS: lamoTRIgine 100MG TAB PO SCH (10:59)
[2023-10-15] MEDS: BRIMONIDINE 0.15% OPHTH SOLN 5 ML OU SCH (11:00)
[2023-10-15] MEDS ORDERED: OSEL30CA PO (11:00)
[2023-10-15] MEDS: TIMOLOL MALEATE 0.5% OPHTH SOLN 5 ML OU SCH (11:00)
[2023-10-15] MEDS ORDERED: LEVO1TAB40 PO (11:00)
[2023-10-15] MEDS: POTASSIUM CHLORIDE 10MEQ SR TABLET PO ONE (14:37)
[2023-10-15] MEDS ORDERED: levETIRAcetam 250MG TABLET (KEPPRA) PO SCH (21:00)
[2023-10-15] MEDS ORDERED: TOPIRAMATE (TopAMAX) 100 MG TAB PO SCH (21:00)
[2023-10-15] MEDS ORDERED: ASPIRIN 81MG ENTERIC TABLET PO SCH (21:00)
[2023-10-15] MEDS ORDERED: LATANOPROST 0.005% OPHTH SOLN 2.5 ML OU SCH (21:00)
[2023-10-16] MEDS ORDERED: LevoFLOXacin IV 750 MG in IV 1 EA IV SCH (21:00)
[2023-10-17] MEDS ORDERED: FOSF3PAC2 PO (15:25)
== END 2023-10-15 15:00 | disposition home or self-care (01) | DRG 71 ==
LOC: EDBD 20:24 → M ED 20:24 → M ED INP 10-15 00:26 → M PCU 10-15 05:00
PROVIDERS: ADMIT Internal Medicine; ATTEND Internal Medicine
DX: G93.41 Metabolic encephalopathy (principal); I69.351 Hemiplegia and hemiparesis following cerebral infarction affecting right dominant side; N39.0 Urinary tract infection, site not specified; N30.90 Cystitis, unspecified without hematuria; J10.1 Influenza due to other identified influenza virus with other respiratory manifestations; G80.9 Cerebral palsy, unspecified; G40.909 Epilepsy, unspecified, not intractable, without status epilepticus; I10 Essential (primary) hypertension; H40.10X0 Unspecified open-angle glaucoma, stage unspecified; G47.33 Obstructive sleep apnea (adult) (pediatric); N32.81 Overactive bladder; Z79.82 Long term (current) use of aspirin; Z79.899 Other long term (current) drug therapy; Z88.1 Allergy status to other antibiotic agents; Z88.8 Allergy status to other drugs, medicaments and biological substances; Z91.048 Other nonmedicinal substance allergy status; Z90.49 Acquired absence of other specified parts of digestive tract; Z85.44 Personal history of malignant neoplasm of other female genital organs

== ENCOUNTER → 2023-11-15 | Outpatient (CLI) | payer MEDICARE, MEDICAID ==
[~2023-11-15] MED LIST changes: +FOSF3PAC2 PO; +LEVO1TAB40 PO; +OSEL30CA PO
[2023-11-15 10:51] LABS: BASO % 0.5 % (0.0-1.0); EOS # 0.3 10^3/uL (0.0-0.5); EOS % 4.3 % (0.0-3.0); HEMATOCRIT 35.9 % (36.0-47.0); HEMOGLOBIN 11.8 g/dl (12.0-15.5); LYMPH # 1.7 10^3/uL (1.5-5.0); LYMPH % 28.6 % (24.0-44.0); MEAN CORPUSCULAR HEMOGLOBIN 34.3 pg (27.0-33.0); MEAN CORPUSCULAR HGB CONC 32.9 g/dl (32.0-36.5); MEAN CORPUSCULAR VOLUME 104.4 fl (80.0-96.0); MONO # 0.5 10^3/uL (0.0-0.8); MONO % 8.5 % (2.0-8.0); NEUTROPHILS # 3.5 10^3/uL (1.5-8.5); NEUTROPHILS % 57.9 % (36.0-66.0); PLATELET COUNT, AUTOMATED 222 10^3/uL (150-450); RED BLOOD COUNT 3.44 10^6/uL (4.00-5.40)
[2023-11-15 11:10] LABS: ALBUMIN 3.3 G/DL (3.2-5.2); BILIRUBIN,TOTAL 0.4 MG/DL (0.3-1.2); CALCIUM LEVEL 9.3 MG/DL (8.3-10.6); CHOLESTEROL RISK RATIO 2.25 (<5); CREATININE FOR GFR 1.08 MG/DL (0.55-1.30); GLOMERULAR FILTRATION RATE 53.2 (>39); HDL CHOLESTEROL 57.3 MG/DL (>40); LDL CHOLESTEROL 58.1 MG/DL (<100); NON-HDL-C 71.7 MG/DL; TOTAL PROTEIN 6.5 G/DL (5.7-8.2)
== END ==
LOC: M WUC 08:13
PROVIDERS: ATTEND Nurse Practitioner Family
DX: I10 Essential (primary) hypertension (principal); N39.0 Urinary tract infection, site not specified; M17.12 Unilateral primary osteoarthritis, left knee; M25.562 Pain in left knee

== ENCOUNTER → 2023-11-21 | Outpatient (CLI) | payer MEDICARE, MEDICAID | LOC: M WHC 09:47 | PROVIDERS: ATTEND Nurse Practitioner Family | DX: Z12.31 Encounter for screening mammogram for malignant neoplasm of breast (principal); M89.9 Disorder of bone, unspecified; Z78.0 Asymptomatic menopausal state ==

== ENCOUNTER → 2024-01-12 | Outpatient (CLI) | payer MEDICARE, MEDICAID | LOC: M PLAIMG 11:19 | PROVIDERS: ATTEND Nurse Practitioner Family | DX: M25.551 Pain in right hip (principal) ==

== ENCOUNTER 2024-01-25 21:35 | Emergency (ER) | payer MEDICARE, MEDICAID ==
[~2024-01-25] VITALS: Ht 160 cm; Wt 77.5 kg
[2024-01-25] MEDS ORDERED: LIDOCAINE 2% W/EPINEPHRINE 20ML VIAL **PRES FREE ONE (21:36)
[2024-01-25] MEDS ORDERED: LIDOCAINE W/EPINEPHRINE 1% 20ML VIAL SC ONE (22:50)
[2024-01-25] MEDS ORDERED: LIDOCAINE 2% W/EPINEPHRINE 20ML VIAL **PRES FREE As Ordered ONE (22:57)
[2024-01-25 23:30] VITALS: BP 127/58; TEMP 98; O2SAT 99
== END 2024-01-25 23:40 | disposition home or self-care (01) ==
LOC: M ED 21:35
DX: S01.419A Laceration without foreign body of unspecified cheek and temporomandibular area, initial encounter (principal); Y92.9 Unspecified place or not applicable; Y93.9 Activity, unspecified; Y99.9 Unspecified external cause status; Z88.1 Allergy status to other antibiotic agents; Z88.8 Allergy status to other drugs, medicaments and biological substances; Z79.1 Long term (current) use of non-steroidal anti-inflammatories (NSAID); Z79.810 Long term (current) use of selective estrogen receptor modulators (SERMs); Z79.899 Other long term (current) drug therapy

== ENCOUNTER 2024-04-10 13:57 | Emergency (ER) | payer MEDICARE, MEDICAID ==
[2024-04-10] MEDS ORDERED: DOXY-440 PO (17:03)
[2024-04-10 17:15] VITALS: BP 133/63; TEMP 97.7; O2SAT 99
== END 2024-04-10 17:37 | disposition home or self-care (01) ==
LOC: M ED 13:57 → EDBD 13:57 → M ED 17:37
DX: S93.402A Sprain of unspecified ligament of left ankle, initial encounter (principal); S83.92XA Sprain of unspecified site of left knee, initial encounter; L97.529 Non-pressure chronic ulcer of other part of left foot with unspecified severity; Y92.019 Unspecified place in single-family (private) house as the place of occurrence of the external cause; Y93.9 Activity, unspecified; Y99.9 Unspecified external cause status; W01.0XXA Fall on same level from slipping, tripping and stumbling without subsequent striking against object, initial encounter; G80.8 Other cerebral palsy; Z88.1 Allergy status to other antibiotic agents; Z88.8 Allergy status to other drugs, medicaments and biological substances; Z79.1 Long term (current) use of non-steroidal anti-inflammatories (NSAID); Z79.2 Long term (current) use of antibiotics; Z79.810 Long term (current) use of selective estrogen receptor modulators (SERMs); Z79.899 Other long term (current) drug therapy

== ENCOUNTER 2024-08-08 22:21 | Inpatient (IN) | payer MEDICARE, MEDICAID ==
[~2024-08-08] VITALS: Ht 165.1 cm; Wt 73.3 kg
[~2024-08-08 22:21] MED LIST changes: +DOXY-440 PO
[2024-08-08 23:03] LABS: BASO % 0.2 % (0.0-1.0); EOS % 0.1 % (0.0-3.0); HEMATOCRIT 40.5 % (36.0-47.0); HEMOGLOBIN 13.5 g/dl (12.0-15.5); LYMPH # 1.8 10^3/uL (1.5-5.0); LYMPH % 17.8 % (24.0-44.0); MEAN CORPUSCULAR HEMOGLOBIN 33.3 pg (27.0-33.0); MEAN CORPUSCULAR HGB CONC 33.3 g/dl (32.0-36.5); MEAN CORPUSCULAR VOLUME 99.8 fl (80.0-96.0); MONO % 9.4 % (2.0-8.0); NEUTROPHILS # 7.4 10^3/uL (1.5-8.5); NEUTROPHILS % 72.3 % (36.0-66.0); PLATELET COUNT, AUTOMATED 162 10^3/uL (150-450); RED BLOOD COUNT 4.06 10^6/uL (4.00-5.40); WHITE BLOOD COUNT 10.2 10^3/uL (4.0-10.0)
[2024-08-08 23:23] LABS: KETONE, URINE AUTO RFX NEGATIVE (NEGATIVE); MUCUS, URINE RFX SMALL (NEGATIVE); RBC, URINE AUTO RFX 1 /HPF (0-3); SQUAM EPITHELIAL CELL UR AURFX 0 /HPF (0-6)
[2024-08-08 23:24] LABS: LEUKOCYTE ESTERASE UR AUTO RFX TRACE (NEGATIVE); NITRITE, URINE AUTO RFX POSITIVE (NEGATIVE); WBC, URINE AUTO RFX 23 /HPF (0-3)
[2024-08-08 23:35] LABS: ALBUMIN 3.1 G/DL (3.2-5.2); BILIRUBIN,DIRECT 0.1 MG/DL (<0.4); BILIRUBIN,TOTAL 0.3 MG/DL (0.3-1.2); CALCIUM LEVEL 8.9 MG/DL (8.3-10.6); CK-MB VALUE MASS 1.8 NG/ML (<3.6); CREATININE FOR GFR 1.41 MG/DL (0.55-1.30); MB/CK RELATIVE INDEX 2.16 (< OR =4); POTASSIUM SERUM 2.4 MMOL/L (3.5-5.1); THYROID STIMULATING HORMONE 2.007 uIU/ML (0.55-4.78); TOTAL PROTEIN 6.5 G/DL (5.7-8.2)
[2024-08-09 00:02] LABS: MAGNESIUM LEVEL 2.1 MG/DL (1.8-2.4)
[2024-08-09] MEDS: FOSFOMYCIN TROMETHAMINE 3 GM POWDER PACKET (MONUROL) PO ONE (01:58)
[2024-08-09] MEDS: KCL 10MEQ/100ML SWI (KRUN) 10 MEQ in IV 1 EA IV ONE (01:58)
[2024-08-09] MEDS: POTASSIUM CHLORIDE 10% LIQ 20MEQ/15ML UDC PO ONE (01:58)
[2024-08-09] MEDS ORDERED: ACETAMINOPHEN 325 MG TAB PO PRN (02:00)
[2024-08-09] MEDS: AZITHROMYCIN INJ 500 MG, VIAL MATE ADAPTER 1 EACH in NS 250 ML IV SCH (03:00)
[2024-08-09 05:21] LABS: CALCIUM LEVEL 8.1 MG/DL (8.3-10.6); CREATININE FOR GFR 1.33 MG/DL (0.55-1.30); GLOMERULAR FILTRATION RATE 41.7 (>39)
[2024-08-09] MEDS ORDERED: LR 1,000 ML IV SCH (07:40)
[2024-08-09] MEDS ORDERED: RIVAROXABAN 10MG TAB (XARELTO) PO SCH (09:00)
[2024-08-09] MEDS ORDERED: ACET1TAB55 PO (09:42)
[2024-08-09] MEDS ORDERED: GUAI100L6 PO (09:42)
[2024-08-09] MEDS ORDERED: SERT-141 PO (10:30)
[2024-08-09] MEDS ORDERED: HOME MED LIST COMPLETE! XX SCH (10:30)
[2024-08-09] MEDS ORDERED: DESI13CR2 TOP (10:30)
[2024-08-09] MEDS ORDERED: TRIPOIN9 TOP (10:30)
[2024-08-09] MEDS ORDERED: IBUP200C25 PO (10:30)
[2024-08-09] MEDS ORDERED: KETO2SHA8 TOP (10:30)
[2024-08-09] MEDS ORDERED: IBUPROFEN 400MG TAB PO PRN (11:25)
[2024-08-09] MEDS ORDERED: guaiFENesin SYRUP 200MG 10ML UDC PO PRN (11:25)
[2024-08-09] MEDS: lamoTRIgine 100MG TAB PO ONE (12:18)
[2024-08-09] MEDS: TOPIRAMATE (TopAMAX) 100 MG TAB PO SCH ×2 (12:18→21:34)
[2024-08-09] MEDS: DOCUSATE SODIUM 100MG CAPSULE PO SCH (12:19)
[2024-08-09] MEDS: levETIRAcetam INJection 1,000 MG in IV 1 EA IV ONE (12:19)
[2024-08-09] MEDS: POTASSIUM CHLORIDE 10% LIQ 20MEQ/15ML UDC PO SCH (12:20)
[2024-08-09] MEDS: PANTOPRAZOLE 40MG VIAL IV SCH (12:20)
[2024-08-09] MEDS: POTASSIUM CHLORIDE INJ 40 MEQ in D5W 1,000 ML IV ONE (13:14)
[2024-08-09 14:42] LABS: IONIZED CALCIUM 4.9 MG/DL (4.5-5.3)
[2024-08-09 14:44] LABS: BASO % 0.1 % (0.0-1.0); EOS # 0.1 10^3/uL (0.0-0.5); HEMOGLOBIN 11.8 g/dl (12.0-15.5); LYMPH # 1.8 10^3/uL (1.5-5.0); LYMPH % 26.3 % (24.0-44.0); MEAN CORPUSCULAR HEMOGLOBIN 33.7 pg (27.0-33.0); MEAN CORPUSCULAR HGB CONC 32.8 g/dl (32.0-36.5); MEAN CORPUSCULAR VOLUME 102.9 fl (80.0-96.0); MONO # 0.6 10^3/uL (0.0-0.8); NEUTROPHILS # 4.4 10^3/uL (1.5-8.5); NEUTROPHILS % 63.2 % (36.0-66.0); PLATELET COUNT, AUTOMATED 132 10^3/uL (150-450)
[2024-08-09] MEDS: D5W 1,000 ML IV ONE (14:59)
[2024-08-09 15:30] VITALS: BP 117/66; TEMP 97.3; O2SAT 97
[2024-08-09 15:33] LABS: ALBUMIN 2.8 G/DL (3.2-5.2); BILIRUBIN,TOTAL 0.3 MG/DL (0.3-1.2); CALCIUM LEVEL 8.5 MG/DL (8.3-10.6); CREATININE FOR GFR 1.03 MG/DL (0.55-1.30); GLOMERULAR FILTRATION RATE 56.1 (>39); POTASSIUM SERUM 3.4 MMOL/L (3.5-5.1); TOTAL PROTEIN 5.8 G/DL (5.7-8.2)
[2024-08-09] MEDS: POTASSIUM CHLORIDE 10MEQ SR TABLET PO ONE (16:18)
[2024-08-09 20:42] VITALS: BP 116/62; TEMP 97.5; O2SAT 99
[2024-08-09] MEDS ORDERED: DOCUSATE SODIUM 100MG CAPSULE PO SCH (21:00)
[2024-08-09] MEDS: ASPIRIN 81MG ENTERIC TABLET PO SCH (21:33)
[2024-08-09] MEDS: AZITHROMYCIN 250MG TABLET PO SCH (21:33)
[2024-08-09] MEDS: levETIRAcetam 250MG TABLET (KEPPRA) PO SCH (21:33)
[2024-08-09] MEDS: ASCORBIC ACID 500 MG TAB PO SCH (21:33)
[2024-08-09] MEDS: lamoTRIgine 100MG TAB PO SCH (21:34)
[2024-08-09] MEDS: LATANOPROST 0.005% OPHTH SOLN 2.5 ML OU SCH (21:34)
[2024-08-10 03:45] VITALS: BP 120/67; TEMP 97.5; O2SAT 99
[2024-08-10 05:27] LABS: HEMATOCRIT 34.8 % (36.0-47.0); HEMOGLOBIN 11.6 g/dl (12.0-15.5); MEAN CORPUSCULAR HEMOGLOBIN 34.1 pg (27.0-33.0); MEAN CORPUSCULAR HGB CONC 33.3 g/dl (32.0-36.5); MEAN CORPUSCULAR VOLUME 102.4 fl (80.0-96.0); PLATELET COUNT, AUTOMATED 118 10^3/uL (150-450); WHITE BLOOD COUNT 6.2 10^3/uL (4.0-10.0)
[2024-08-10 06:08] LABS: PROCALCITONIN 0.54 ng/ml
[2024-08-10 06:10] LABS: ALBUMIN 2.6 G/DL (3.2-5.2); ALKALINE PHOSPHATASE 73 U/L (35-104); ALT/SGPT 45 U/L (7.0-40); AST/SGOT 26 U/L (<34); BILIRUBIN,TOTAL 0.3 MG/DL (0.3-1.2); BLOOD UREA NITROGEN 23 MG/DL (9-23); CALCIUM LEVEL 8.7 MG/DL (8.3-10.6); CARBON DIOXIDE LEVEL 18 MMOL/L (20-31); CHLORIDE LEVEL 119 MMOL/L (98-107); CREATININE FOR GFR 0.82 MG/DL (0.55-1.30); GLOMERULAR FILTRATION RATE > 60.0 (>39); GLUCOSE, FASTING 90 MG/DL (74-106); MAGNESIUM LEVEL 1.9 MG/DL (1.8-2.4); SODIUM LEVEL 146 MMOL/L (136-145); TOTAL PROTEIN 5.5 G/DL (5.7-8.2)
[2024-08-10] MEDS: oxyBUTYnin *DITROPAN XL* 5 MG TABCR PO SCH (08:58)
[2024-08-10] MEDS: SERTRALINE HCL 50 MG TAB PO SCH (08:58)
[2024-08-10] MEDS: levETIRAcetam 250MG TABLET (KEPPRA) PO SCH (08:58)
[2024-08-10] MEDS: ENOXAPARIN 40MG/0.4ML SYRINGE (J1650 PER 10MG) SC SCH (08:59)
[2024-08-10] MEDS: D5W 1,000 ML IV ONE ×3 (10:03→20:53)
[2024-08-10 11:45] VITALS: BP 116/66; TEMP 97.2; O2SAT 94
[2024-08-10] MEDS: SODIUM BICARBONATE 325 MG TAB PO SCH (14:12)
[2024-08-10 14:49] LABS: BLOOD UREA NITROGEN 17 MG/DL (9-23); CALCIUM LEVEL 8.2 MG/DL (8.3-10.6); CARBON DIOXIDE LEVEL 20 MMOL/L (20-31); CHLORIDE LEVEL 114 MMOL/L (98-107); CREATININE FOR GFR 0.77 MG/DL (0.55-1.30); GLOMERULAR FILTRATION RATE > 60.0 (>39); GLUCOSE, FASTING 92 MG/DL (74-106); POTASSIUM SERUM 4.3 MMOL/L (3.5-5.1); SODIUM LEVEL 144 MMOL/L (136-145)
[2024-08-10 15:01] LABS: C REACTIVE PROTEIN QUANTITATIV 4.42 MG/DL (<1.0)
[2024-08-10 15:09] LABS: PROCALCITONIN 0.48 ng/ml
[2024-08-10 20:00] VITALS: BP 114/65; TEMP 97.3; O2SAT 96
[2024-08-11 01:00] LABS: BLOOD UREA NITROGEN 13 MG/DL (9-23); CALCIUM LEVEL 8.9 MG/DL (8.3-10.6); CARBON DIOXIDE LEVEL 21 MMOL/L (20-31); CHLORIDE LEVEL 112 MMOL/L (98-107); CREATININE FOR GFR 0.71 MG/DL (0.55-1.30); GLOMERULAR FILTRATION RATE > 60.0 (>39); GLUCOSE, FASTING 97 MG/DL (74-106); POTASSIUM SERUM 4.1 MMOL/L (3.5-5.1); SODIUM LEVEL 141 MMOL/L (136-145)
[2024-08-11 04:00] VITALS: BP 119/80; TEMP 97.2; O2SAT 96
[2024-08-11 06:39] LABS: BLOOD UREA NITROGEN 12 MG/DL (9-23); CALCIUM LEVEL 9.1 MG/DL (8.3-10.6); CARBON DIOXIDE LEVEL 23 MMOL/L (20-31); CHLORIDE LEVEL 113 MMOL/L (98-107); CREATININE FOR GFR 0.77 MG/DL (0.55-1.30); GLOMERULAR FILTRATION RATE > 60.0 (>39); GLUCOSE, FASTING 89 MG/DL (74-106); POTASSIUM SERUM 4.1 MMOL/L (3.5-5.1); SODIUM LEVEL 145 MMOL/L (136-145)
[2024-08-11] MEDS: D5W 1,000 ML IV ONE (07:07)
[2024-08-11] MEDS: LOPERAMIDE 2 MG CAPLET PO PRN (08:53)
[2024-08-11] MEDS ORDERED: LOPE2CA PO (09:15)
[2024-08-11] MEDS ORDERED: METH-855 PO (09:15)
[2024-08-11 12:00] VITALS: BP 122/66; TEMP 97.9; O2SAT 98
[2024-08-11 13:01] LABS: BLOOD UREA NITROGEN 9 MG/DL (9-23); CALCIUM LEVEL 8.1 MG/DL (8.3-10.6); CARBON DIOXIDE LEVEL 24 MMOL/L (20-31); CHLORIDE LEVEL 114 MMOL/L (98-107); CREATININE FOR GFR 0.67 MG/DL (0.55-1.30); GLOMERULAR FILTRATION RATE > 60.0 (>39); GLUCOSE, FASTING 95 MG/DL (74-106); POTASSIUM SERUM 4.3 MMOL/L (3.5-5.1); SODIUM LEVEL 145 MMOL/L (136-145)
[2024-08-11 15:11] LABS: BLOOD UREA NITROGEN 9 MG/DL (9-23); CALCIUM LEVEL 7.9 MG/DL (8.3-10.6); CARBON DIOXIDE LEVEL 23 MMOL/L (20-31); CHLORIDE LEVEL 114 MMOL/L (98-107); CREATININE FOR GFR 0.71 MG/DL (0.55-1.30); GLOMERULAR FILTRATION RATE > 60.0 (>39); GLUCOSE, FASTING 86 MG/DL (74-106); POTASSIUM SERUM 3.9 MMOL/L (3.5-5.1); SODIUM LEVEL 146 MMOL/L (136-145)
[2024-08-11 20:00] VITALS: BP 107/63; TEMP 97.3; O2SAT 96
[2024-08-12 04:00] VITALS: BP 125/68; TEMP 97; O2SAT 96
[2024-08-12 23:57] LABS: LAMOTRIGINE (LAMICTAL) 11.5 mcg/mL (2.5-15.0)
== END 2024-08-12 11:38 | disposition home or self-care (01) | DRG 640 ==
LOC: M ED 22:21 → M ED INP 08-09 01:59 → M MSPAV 08-09 15:35
PROVIDERS: ADMIT Student in an Organized Health Care Education/Training Program; ATTEND General Practice
DX: E87.6 Hypokalemia (principal); R53.2 Functional quadriplegia; I69.351 Hemiplegia and hemiparesis following cerebral infarction affecting right dominant side; N39.0 Urinary tract infection, site not specified; K52.9 Noninfective gastroenteritis and colitis, unspecified; E87.0 Hyperosmolality and hypernatremia; G40.909 Epilepsy, unspecified, not intractable, without status epilepticus; G80.8 Other cerebral palsy; I10 Essential (primary) hypertension; B96.20 Unspecified Escherichia coli [E. coli] as the cause of diseases classified elsewhere; N32.81 Overactive bladder; G47.33 Obstructive sleep apnea (adult) (pediatric); Z90.49 Acquired absence of other specified parts of digestive tract; Z79.82 Long term (current) use of aspirin; Z79.899 Other long term (current) drug therapy; Z88.1 Allergy status to other antibiotic agents; Z88.8 Allergy status to other drugs, medicaments and biological substances; Z91.048 Other nonmedicinal substance allergy status

== ENCOUNTER 2024-08-12 21:21 | Emergency (ER) | payer MEDICARE, MEDICAID ==
[~2024-08-12 21:21] MED LIST changes: +ACET1TAB55 PO; +DESI13CR2 TOP; +GUAI100L6 PO; +IBUP200C25 PO; +KETO2SHA8 TOP; +LOPE2CA PO; +METH-855 PO; +SERT-141 PO; +TRIPOIN9 TOP
[2024-08-13] MEDS: KETOROLAC 30 MG/ML 1ML VIAL IM ONE (02:30)
[2024-08-13] MEDS: BOOSTRIX VACCINE (TETANUS/DIPHTH/ACEL. PERTUSSIS) 0.5ML SYR IM.IMMUN ONE (02:35)
[2024-08-13] MEDS ORDERED: VANCOMYCIN HCL 1,000 MG, VIAL MATE ADAPTER 1 EACH in NS 250 ML IP ONE (08:40)
[2024-08-13 08:56] LABS: BASO % 0.1 % (0.0-1.0); EOS # 0.3 10^3/uL (0.0-0.5); EOS % 4.8 % (0.0-3.0); HEMATOCRIT 34.7 % (36.0-47.0); HEMOGLOBIN 11.2 g/dl (12.0-15.5); LYMPH # 1.6 10^3/uL (1.5-5.0); LYMPH % 22.9 % (24.0-44.0); MEAN CORPUSCULAR HEMOGLOBIN 33.2 pg (27.0-33.0); MEAN CORPUSCULAR HGB CONC 32.3 g/dl (32.0-36.5); MONO # 0.5 10^3/uL (0.0-0.8); MONO % 6.8 % (2.0-8.0); NEUTROPHILS # 4.5 10^3/uL (1.5-8.5); PLATELET COUNT, AUTOMATED 141 10^3/uL (150-450); RED BLOOD COUNT 3.37 10^6/uL (4.00-5.40); WHITE BLOOD COUNT 6.9 10^3/uL (4.0-10.0)
[2024-08-13 09:15] LABS: INR 0.99; PARTIAL THROMBOPLASTIN TIME 26.5 SECONDS (24.8-34.2); PROTHROMBIN TIME 13.4 SECONDS (12.5-14.5)
[2024-08-13 09:20] LABS: ALBUMIN 2.6 G/DL (3.2-5.2); ALKALINE PHOSPHATASE 86 U/L (35-104); ALT/SGPT 42 U/L (7.0-40); AST/SGOT 43 U/L (<34); BILIRUBIN,TOTAL 0.3 MG/DL (0.3-1.2); BLOOD UREA NITROGEN 21 MG/DL (9-23); CALCIUM LEVEL 8.1 MG/DL (8.3-10.6); CARBON DIOXIDE LEVEL 23 MMOL/L (20-31); CHLORIDE LEVEL 113 MMOL/L (98-107); CREATININE FOR GFR 0.75 MG/DL (0.55-1.30); GLOMERULAR FILTRATION RATE > 60.0 (>39); GLUCOSE, FASTING 85 MG/DL (74-106); SODIUM LEVEL 144 MMOL/L (136-145); TOTAL PROTEIN 5.6 G/DL (5.7-8.2)
[2024-08-13] MEDS: VANCOMYCIN HCL 1,000 MG, VIAL MATE ADAPTER 1 EACH in NS 250 ML IV ONE (09:34)
[2024-08-13 09:58] VITALS: BP 155/75; TEMP 98; O2SAT 99
[2024-08-13 10:35] LABS: RSV AMPLIFICATION NEGATIVE (NEGATIVE)
== END 2024-08-13 10:01 | disposition short-term general hospital (02) ==
LOC: M ED 21:21
DX: S92.351B Displaced fracture of fifth metatarsal bone, right foot, initial encounter for open fracture (principal); G47.33 Obstructive sleep apnea (adult) (pediatric); Z79.1 Long term (current) use of non-steroidal anti-inflammatories (NSAID); Z79.810 Long term (current) use of selective estrogen receptor modulators (SERMs); Z79.899 Other long term (current) drug therapy; Z88.1 Allergy status to other antibiotic agents; Z88.8 Allergy status to other drugs, medicaments and biological substances; Z23 Encounter for immunization
CPT/HCPCS: 73660; 80053; 85025; 85610; 85730; 86850; 86900; 86901; 87631; 90471; 90715; 96372; 96374; 99285; J1885; J3370

== ENCOUNTER → 2024-08-15 | Outpatient (REF) | payer MEDICARE, MEDICAID | LOC: M LAB REF 14:23 | PROVIDERS: ATTEND Podiatrist | DX: L03.031 Cellulitis of right toe (principal) ==

== ENCOUNTER 2025-02-19 12:11 | Emergency (ER) | payer MEDICARE, MEDICAID ==
[~2025-02-19] VITALS: Ht 165.1 cm; Wt 73.3 kg
[~2025-02-19 12:11] MED LIST changes: +DIVA-41; +DIVA-41 PO; -DIVA500T94; -DIVA500T94 PO; +KETO120S5 TOP; -KETO2SHA8 TOP; +METH-1100 PO; -METH-855 PO; +TOPI-14 PO; -TOPI200T7 PO
[2025-02-19 12:20] VITALS: TEMP 97.4; O2SAT 99
[2025-02-19 14:55] VITALS: BP 100/63
== END 2025-02-19 14:57 | disposition home or self-care (01) ==
LOC: EDBD 12:11 → M ED 12:11
DX: R09.89 Other specified symptoms and signs involving the circulatory and respiratory systems (principal); G40.909 Epilepsy, unspecified, not intractable, without status epilepticus; Z86.73 Personal history of transient ischemic attack (TIA), and cerebral infarction without residual deficits; Z88.1 Allergy status to other antibiotic agents; Z88.8 Allergy status to other drugs, medicaments and biological substances; Z91.048 Other nonmedicinal substance allergy status; Z79.1 Long term (current) use of non-steroidal anti-inflammatories (NSAID); Z79.2 Long term (current) use of antibiotics; Z79.899 Other long term (current) drug therapy; Z79.810 Long term (current) use of selective estrogen receptor modulators (SERMs)

== ENCOUNTER → 2025-04-12 | Outpatient (CLI) | payer MEDICARE, MEDICAID | LOC: M WHC 08:15 | PROVIDERS: ATTEND Nurse Practitioner Family | DX: Z12.31 Encounter for screening mammogram for malignant neoplasm of breast (principal) ==